=== PATIENT | male | born 1990 | race Caucasian/White ===

== ENCOUNTER 2021-05-28 13:23 | Inpatient (IN) | payer MEDICAID, SELFPAY ==
[2021-05-28] VITALS (7 sets, daily range): BP systolic 141–154; BP diastolic 87–108; PULSE 68–78; RESP 16–18; TEMP 36.7–38.3; O2SAT 97–100; BMI 28.5; BMI 27.8
--- NOTE | 2021-05-28 16:42 | EKG12_ITS ---
Test Reason : CP Blood Pressure : / mmHG Vent. Rate : 080 BPM Atrial Rate : 080 BPM P-R Int : 154 ms QRS Dur : 098 ms QT Int : 384 ms P-R-T Axes : 033 057 015 degrees QTc Int : 442 ms Normal sinus rhythm Normal ECG When compared with ECG of 28-MAY-2021 16:52, Nonspecific T wave abnormality now evident in Inferior leads Confirmed by MEAGHAN CHINO, DANI ([id number]), website/blog editor JOANNE VILLAGRAN ([id number]) on 06/07/2021 12:31:55 P M Referred By: DANAY Confirmed By:AUDRA HARDING MD
--- NOTE | 2021-05-28 16:48 | EX.ED.DYSGE1 ---
HPI History of Present Illness Chief Complaint: Substance Abuse Informant: patient Narrative Narrative: 30-year-old male presents the emergency department requesting detox from heroin and alcohol. Patient states that he was clean for a couple years was taking Subutex. Couple months ago end of a relationship occurred and he began to use heroin again. The patient injects. Although he states for the past couple days he has been snorting. Patient states that he also abuses alcohol. He states he needs to get clean. He denies any legal issues currently [facility] Medical History (Updated 05/28/21 @ 17:[address] Lazarus Somers DO) Asthma Hepatitis C Opiate abuse, continuous Home Medications albuterol sulfate 1 - 2 puff INHALATION Q6H PRN 05/28/21 [History Last Taken Unknown] buprenorphine HCl 8 mg SUBLINGUAL BID 05/28/21 [History Last Taken Unknown] fluticasone propion-salmeterol 1 ea INHALATION BID 05/28/21 [History Last Taken Unknown] Allergy/AdvReac Type Severity Reaction Status Date / Time No Known Allergies Allergy Verified 05/28/21 16:55 Surgical History History of appendectomy History of spinal surgery Social History (Updated 05/28/21 @ 16:[address] Lazarus Somers DO) current gender identity: male Smoking Status: Current every day smoker tobacco type: cigarettes alcohol intake: current alcohol intake frequency: 3 or more drinks per day substance use type: crack/cocaine and heroin ROS ROS ED Constitutional Constitutional ED: Denies chills or weight loss Eyes Eyes: Denies change in vision or diplopia ENT ENT ED: Denies ear pain, rhinorrhea or sore throat Cardiovascular Cardiovascular: Denies chest pain, orthopnea, palpitations or racing heartbeat Respiratory/Chest Respiratory/Chest: Denies cough, dyspnea or orthopnea Gastrointestinal Gastrointestinal: Denies abdominal pain, diarrhea, nausea or vomiting Genitourinary Genitourinary ED: Denies dysuria, hematuria or urinary frequency Musculoskeletal Musculoskeletal: Denies arthralgias or myalgias Integumentary Denies abscess or rash Neurologic Neurologic: Denies headache(s) or weakness Psychiatric Psychiatric: Denies anxiety, depression, suicidal ideation or suicidal thoughts Endocrine Endocrinology: Denies polydipsia, polyphagia or polyuria Allergic/Immunologic Allergic/Immunologic ED: Denies mouth swelling, tongue swelling or urticaria EXAM Physical Exam Const Vital Signs: 05/28/21 13:24 05/28/21 16:57 05/28/21 17:02 Temperature 98.1 F Temperature Source Temporal Pulse Rate 74 68 Respiratory Rate 16 18 Respiratory Effort Normal Respiratory Pattern Normal Blood Pressure 150/108 H 154/102 H Blood Pressure Mean 122 119 Pulse Ox 98 100 Oxygen Delivery Method Room Air Room Air Positive well nourished and well developed General Appearance ED: well developed HEENT Reports normocephalic, head/scalp atraumatic and moist mucous membranes Eyes PERRL and EOMs intact bilaterally Neck no lymphadenopathy, supple and no JVD Resp normal respiratory effort and clear to auscultation bilaterally Cardio regular rate, regular rhythm and no murmurs GI normal to inspection, nondistended, normoactive bowel sounds and non-tender Palpation: soft Back/Spine no CVA tenderness and normal ROM Extremity normal to inspection General Extremety ED: Negative for edema General Extremity: Negative for edema Neuro oriented x3 and CN's II-XII intact bilaterally Sensorium / Orientation: alert Motor Exam: strength 5/5 throughout Psych mental status grossly normal Mood & Affect: Negative for depressed or tearful Skin no rashes or lesions noted and no wounds MDM MDM Lab Data Attestation: I reviewed the patient's lab results. Labs: Laboratory Results - last 24 hr 05/28/21 16:19 Ur Drug Screen Comment EKG Initial EKG: Attestation: I personally reviewed and interpreted this EKG as follows: Comments: Normal sinus rhythm with a ventricular rate of 63 bpm. Discharge Plan Dx/Rx/DC Orders Clinical Impression: Opiate abuse, continuous, Alcohol abuse Disposition Disposition: Acute Care Hospital [facility]
[2021-05-28 17:15] LABS: Amphetamine Urine VISTA NEGATIVE (<1000 ng/mL); Barbiturate Urine VISTA NEGATIVE (< 200 ng/mL); Benzodiazepine Urine VISTA NEGATIVE (< 200 ng/mL); Cocaine Urine VISTA POSITIVE (< 300 ng/mL); Ecstacy Urine VISTA NEGATIVE (< 500 ng/mL); Methadone Urine VISTA NEGATIVE (< 300 ng/mL); PCP Urine VISTA NEGATIVE (< 25 ng/mL); THC Urine VISTA NEGATIVE (< 50 ng/mL); Vista UDS pH Range 6
[2021-05-28 17:27] LABS: Absolute Neutrophil Count 4.3 X10^3/uL (2.0-7.7); Basophil# 0.02 X10^3/uL; Basophil% 0.3 % (0-1); Eosinophil# 0.05 X10^3/uL; Eosinophils% 0.9 % (0-5); Hematocrit 45.2 % (40-54); Hemoglobin 14.9 g/dL (13.0-16.5); Lymphocyte % 18.8 % (19-41); Mean Corpuscular Hgb 29.6 pg (27.0-32.0); Mean Corpuscular Volume 89.9 fL (80-94); Mean Platelet Vol. 9.5 fl (6.2-12.0); Monocyte# 0.36 X10^3/uL; Monocyte% 6.2 % (0-10); NRBC Flagged by Analyzer 0 % (0-5); Neutrophil # 4.31 X10^3/uL (2.7-7.7); Neutrophil % 73.6 % (47-70); Platelet Count 176 K/mm3 (150-450); RBC Distribution Width CV 12.4 % (11.6-14.6); RBC Distribution Width SD 40.7 fl (35.1-43.9); Red Blood Count 5.03 M/mm3 (4.6-6.2); White Blood Count 5.9 K/mm3 (4.4-11.0)
[2021-05-28 17:36] LABS: International Normalized Ratio 1.1; Prothrombin Time (Protime)PT. 13.3 SECONDS (11.7-14.9)
[2021-05-28 17:42] LABS: ALB/GLOB Ratio 0.9 RATIO (0.9-2.4); AST(SGOT) 16 U/L (15-37); Alanine Aminotransfer ALT/SGPT 23 U/L (16-61); Albumin, Serum 3.5 g/dL (3.2-5.0); Alkaline Phosphatase 85 U/L (45-117); Anion Gap 5 (5-15); BUN 12 mg/dL (7-18); Calcium,Total 9.1 mg/dL (8.5-10.1); Chloride 104 mmol/L (98-107); Creatinine, Serum 0.86 mg/dL (0.70-1.30); EST Glomerular Filtration Rate 109 mL/min (>60); Est Glom Filt Rate - Afr Amer 132 mL/min (>60); Estimated Creatinine Clearance 143.37 ml/min; Globulin 3.9 g/dL (2.2-4.2); Glucose 135 mg/dL (74-106); Potassium 3.4 mmol/L (3.5-5.1); Protein, Total 7.4 g/dL (6.4-8.2); Sodium Level 141 mmol/L (136-145)
[2021-05-28 17:50] LABS: Alcohol, Blood (Medical)-Serum < 3.0 mg/dL
--- NOTE | 2021-05-28 18:16 | HP.PCM.HOS_ITS ---
HPI - General General Date of Admission: 05/28/21 Date of Service: 05/28/21 Chief Complaint: Acute alcohol detox/acute opiate detox HPI Narrative KACIE JACKSON, is a 30 M who presented to the emergency department at [facility] on 05/28/2021 requesting opiate and alcohol detox. The patient states that he has been using both substances for approximately 10 years now and has had periodic sobriety. He most recently underwent detox approximately 2 years ago and did have at least a year of sobriety at that time. He states he started using again secondary to some emotional issues that have occurred in his life but did not want to delve further into these. He is currently using about 1 to 1.5 g of fentanyl a day but has used heroin as well. He uses IV and snorts. He is also drinking approximately 3 tall boys daily on a regular basis. He has never gone through alcohol detox or had any issues with alcohol withdrawal in the past. He denies any current wounds associated with IV drug use. 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 He also admits to smoking tobacco regularly and intermittent cocaine use. He currently denies any significant withdrawal symptoms but is complaining of some clouded thinking and mild internal tremor but denies any other symptoms at this time. Other than elevated blood pressure, his vital signs are stable. His CBC is unremarkable. His coags are within normal limits. His BMP shows mild hypokalemia with a potassium of 3.4 but is otherwise within normal limits. His liver functions are normal. His tox screen is positive only for cocaine. His serum alcohol level is less than 3.0. [facility] Medical History (Updated 05/28/21 @ 18:[address] Jo Ruelas, DO) Asthma Hepatitis C Opiate abuse, continuous Home Medications albuterol sulfate 1 - 2 puff INHALATION Q6H PRN 05/28/21 [History Last Taken Unknown] buprenorphine HCl 8 mg SUBLINGUAL BID 05/28/21 [History Last Taken Unknown] fluticasone propion-salmeterol 1 ea INHALATION BID 05/28/21 [History Last Taken Unknown] Allergy/AdvReac Type Severity Reaction Status Date / Time No Known Allergies Allergy Verified 05/28/21 16:55 Surgical History History of appendectomy History of spinal surgery Social History (Updated 05/28/21 @ 16:[address] Lazarus Somers, DO) current gender identity: male Smoking Status: Current every day smoker tobacco type: cigarettes alcohol intake: current alcohol intake frequency: 3 or more drinks per day substance use type: crack/cocaine and heroin ROS Constitutional Constitutional: Denies anorexia, change in weight, chills, fatigue, fever(s), malaise, night sweats, weakness or other Eyes Eyes: Denies blurry vision, change in eye color, change in vision, discharge from eye(s), double vision, erythema, eye pain, loss of vision or other ENT HEENT: Denies abnormal hearing, dysphagia, ear pain, epistaxis, headache(s), hearing loss, nasal congestion, nasal discharge, post nasal drip, sinus pressure, sore throat or other Cardiovascular Cardiovascular: Denies chest pain, claudication, dyspnea on exertion, edema, lightheadedness, orthopnea, palpitations, paroxysmal nocturnal dyspnea, rapid heart rate, syncope or other Respiratory/Chest Respiratory/Chest: Denies cough, dyspnea, excessive phlegm production, hemoptysis, productive cough, shortness of breath at rest, shortness of breath with exertion, wheezing or other Gastrointestinal Gastrointestinal: Denies abdominal pain, coffee ground emesis, constipation, diarrhea, dyspepsia, hematemesis, hematochezia, loose stools, melena, nausea, vomiting or other Genitourinary Genitourinary: Denies burning urination, difficulty urinating, dysuria, hematuria, nocturia, urinary frequency, urinary hesitancy, urinary incontinence, urinary urgency or other Musculoskeletal Musculoskeletal: Denies arthralgias, back pain, joint pain, joint stiffness, joint swelling, myalgias, neck pain or other Neurologic Neurologic: Reports tremor(s) and other Details: Clouded thinking ; Denies abnormal gait, abnormal speech, confusion, disequilibrium, dizziness, focal weakness, headache(s), numbness, paresthesias, seizure-like activity, seizures, syncope or tingling Psychiatric Psychiatric: Reports anxiety and depression Endocrine Endocrinology: Denies change in body appearance, cold intolerance, excessive sweating, heat intolerance, polydipsia, polyuria or other Hematologic/Lymphatic Hematologic/Lymphatic: Denies anemia, easy bleeding, easy bruising, lymphadenopathy or other Allergic/Immunologic Allergic/Immunologic: Denies rhinitis, hives, eczemia, asthma or other Vital Signs Vital Signs Vital Signs: 05/28/21 13:24 05/28/21 16:57 05/28/21 17:02 Temperature 98.1 F Temperature Source Temporal Pulse Rate 74 68 Respiratory Rate 16 18 Respiratory Effort Normal Respiratory Pattern Normal Blood Pressure 150/108 H 154/102 H Blood Pressure Mean 122 119 Pulse Ox 98 100 Oxygen Delivery Method Room Air Room Air Weight Weight: 100.879 kg Body Mass Index (BMI) 28.5 Physical Exam Const alert, oriented x3, no apparent distress and average body habitus Constitutional Narrative: Young white male sitting up in bed, appears comfortable, nontoxic, very pleasant General Appearance: cooperative HEENT normocephalic, head/scalp atraumatic, hearing grossly normal bilaterally and moist oral mucous membranes HEENT Narrative: Mallampati 2, no thrush Eyes PERRL, EOMs intact bilaterally and conjunctivae normal Eyes Narrative: No scleral icterus Neck no lymphadenopathy, supple, no JVD and no carotid bruits Neck Narrative: Trachea midline, no thyroid enlargement Resp normal respiratory effort, no retractions, no use of accessory muscles and clear to auscultation bilaterally Auscultation: Negative for crackles, rales, rhonchi or wheezes Cardio regular rate, regular rhythm, S1 normal heart sound, S2 normal heart sound, no murmurs, no rub, no gallops, no clicks and no JVD GI normal to inspection, nondistended, normoactive bowel sounds, soft to palpation, non-tender and non-distended; Negative for hepatosplenomegaly Extremity normal to inspection, full ROM and no clubbing, cyanosis or edema Peripheral Pulses: Yes pulses 2+ throughout Skin no rashes or lesions noted, no wounds, skin turgor normal, no jaundice, no petechiae and no mottling Neuro oriented x3, CN's II-XII intact bilaterally, moves all extremities and no focal motor deficits Sensorium / Orientation: awake and alert Speech: speech normal Motor Exam: strength 5/5 throughout Psych affect normal Results Lab / Micro Data Attestation: I reviewed the patient's lab results. Result Diagrams: 05/28/21 17:20 05/28/21 17:20 Labs: Laboratory Results - last 24 hr 05/28/21 16:19: Urine Opiates Screen NEGATIVE, Urine Methadone Screen NEGATIVE, Ur Barbiturates Screen NEGATIVE, Ur Phencyclidine Scrn NEGATIVE, Ur Amphetamines Screen NEGATIVE, U Methamphetamin-MDMA NEGATIVE, U Benzodiazepines Scrn NEGATIVE, Urine Cocaine Screen POSITIVE H, U Cannabinoids Screen NEGATIVE, Ur Drug Screen Comment 05/28/21 17:20: WBC 5.9, RBC 5.03, Hgb 14.9, Hct 45.2, MCV 89.9, MCH 29.6, MCHC 33.0, RDW Std Deviation 40.7, RDW Coeff of Fredo 12.4, Plt Count 176, MPV 9.5, Immature Gran % (Auto) 0.200, Neut % (Auto) 73.6 H, Lymph % (Auto) 18.8 L, [place] % (Auto) 6.2, Eos % (Auto) 0.9, Baso % (Auto) 0.3, Absolute Neuts (auto) 4.3, Absolute Lymphs (auto) 1.10, Nucleated RBC % 0 05/28/21 17:20: PT 13.3, INR 1.1 05/28/21 17:20: Sodium 141, Potassium 3.4 L, Chloride 104, Carbon Dioxide 32.0, Anion Gap 5, BUN 12, Creatinine 0.86, Estim Creat Clear Calc 143.37, Est GFR (MDRD) Af Amer 132, Est GFR (MDRD) Non-Af 109, BUN/Creatinine Ratio 14.0, Glucose 135 H, Calcium 9.1, Total Bilirubin 0.30, AST 16, ALT 23, Alkaline Phosphatase 85, Total Protein 7.4, Albumin 3.5, Globulin 3.9, Albumin/Globulin Ratio 0.9 05/28/21 17:20: Ethyl Alcohol < 3.0 Assessment & Plan Assessment/Plan (1) Alcohol withdrawal: (2) Opiate withdrawal: (3) Hypokalemia: (4) Elevated blood pressure reading: (5) Alcohol abuse: (6) Opiate abuse, continuous: (7) Tobacco abuse: PLAN: Acute opiate withdrawal -We will start buprenorphine taper tomorrow -Supportive medications -180 consultation -States patient uses IV will check for HIV Acute alcohol withdrawal -Phenobarbital taper to start tonight -Thiamine and folate -Supportive medications -180 consultation Hypokalemia -40 mEq of p.o. potassium -Mild at 3.4 -No need to repeat labs Elevated blood pressure reading -Suspect this is related to the substance abuse -Has cocaine in his system -We will continue to monitor and if blood pressure readings remain elevated will have patient follow-up and initiate antihypertensive as an outpatient Asthma -Continue as needed inhalers Tobacco abuse -Nicotine gum -Recommend cessation DVT prophylaxis -Low risk -Early ambulation protocol CODE STATUS -Full code
--- NOTE | 2021-05-28 18:46 | PCS.PANDOC ---
PANDEMIC DOCUMENTATION INITIATED: Date: 03/21/2021 Time: 190
[2021-05-28] MEDS: Dicyclomine 10 MG Capsule 20 MG PO (19:42)
[2021-05-28] MEDS: Potassium Chloride Oral Tablet 20 MEQ 40 MEQ PO (19:42)
[2021-05-28] MEDS: Phenobarbital 32.4 MG Tablet PO ×2 (19:42→23:00)
[2021-05-28] MEDS: Methocarbamol 750 MG Tablet 1500 MG PO (19:43)
[2021-05-28] MEDS: Albuterol 2.5 MG/3 ML VIAL.NEB. INHALATION (20:42)
[2021-05-28] MEDS: Budesonide Respules 0.5 MG/2 ML AMPUL.NEB. INHALATION (20:42)
[2021-05-28] MEDS: traZODone 100 MG Tablet PO (23:01)
[2021-05-28] MEDS: hydrOXYzine PAM 25 MG Capsule 50 MG PO (23:01)
[2021-05-29] VITALS (8 sets, daily range): BP systolic 117–143; BP diastolic 69–104; PULSE 69–87; RESP 12–16; TEMP 36.6–36.9; O2SAT 97–99
[2021-05-29] MEDS: Gabapentin 300 MG Capsule PO ×2 (00:43→18:38)
--- NOTE | 2021-05-29 02:05 | NURSING ---
Not awakened. Pt finally fell asleep.
[2021-05-29] MEDS: Phenobarbital 32.4 MG Tablet PO ×4 (02:50→22:35)
[2021-05-29] MEDS: Folic Acid 1 MG Tablet PO (10:06)
[2021-05-29] MEDS: Thiamine Hydrochloride 100 MG Tablet PO (10:06)
[2021-05-29] MEDS: Methocarbamol 750 MG Tablet 1500 MG PO ×2 (10:06→18:38)
[2021-05-29] MEDS: Buprenorphine HCl 2 MG TAB.SUBL SL ×2 (10:47→18:38)
--- NOTE | 2021-05-29 11:12 | PN.HOSP_ITS ---
Subjective Subjective Patient reports he is feeling fine. He did refuse his morning phenobarbital. He is to start his Suboxone taper this morning. No overnight issues or complaints this morning. Objective Data Objective Data Vital Signs: Vital Signs Temp Pulse Resp BP Pulse Ox 97.9 F 73 16 143/104 H 99 05/29/21 10:20 05/29/21 10:20 05/29/21 10:20 05/29/21 10:20 05/29/21 10:20 Oxygen Delivery Method Room Air Weight: 98.43 kg Body Mass Index (BMI) 27.8 Lab / Micro Data Result Diagrams: 05/28/21 17:20 05/28/21 17:20 Labs: Laboratory Results - last 24 hr 05/28/21 16:19: Urine Opiates Screen NEGATIVE, Urine Methadone Screen NEGATIVE, Ur Barbiturates Screen NEGATIVE, Ur Phencyclidine Scrn NEGATIVE, Ur Amphetamines Screen NEGATIVE, U Methamphetamin-MDMA NEGATIVE, U Benzodiazepines Scrn NEGATIVE, Urine Cocaine Screen POSITIVE H, U Cannabinoids Screen NEGATIVE, Ur Drug Screen Comment 05/28/21 17:20: WBC 5.9, RBC 5.03, Hgb 14.9, Hct 45.2, MCV 89.9, MCH 29.6, MCHC 33.0, RDW Std Deviation 40.7, RDW Coeff of Fredo 12.4, Plt Count 176, MPV 9.5, Immature Gran % (Auto) 0.200, Neut % (Auto) 73.6 H, Lymph % (Auto) 18.8 L, [place] % (Auto) 6.2, Eos % (Auto) 0.9, Baso % (Auto) 0.3, Absolute Neuts (auto) 4.3, Absolute Lymphs (auto) 1.10, Nucleated RBC % 0 05/28/21 17:20: PT 13.3, INR 1.1 05/28/21 17:20: Sodium 141, Potassium 3.4 L, Chloride 104, Carbon Dioxide 32.0, Anion Gap 5, BUN 12, Creatinine 0.86, Estim Creat Clear Calc 143.37, Est GFR (MDRD) Af Amer 132, Est GFR (MDRD) Non-Af 109, BUN/Creatinine Ratio 14.0, Glucose 135 H, Calcium 9.1, Total Bilirubin 0.30, AST 16, ALT 23, Alkaline Phosphatase 85, Total Protein 7.4, Albumin 3.5, Globulin 3.9, Albumin/Globulin Ratio 0.9 05/28/21 17:20: Ethyl Alcohol < 3.0 Physical Exam Const alert, oriented x3, no apparent distress and average body habitus Constitutional Narrative: Young white male lying in bed sleeping but awakens easily for exam, appears comfortable, nontoxic General Appearance: cooperative Exam Limitations: no limitations Nutritional Appearance: overweight HEENT normocephalic, head/scalp atraumatic, hearing grossly normal bilaterally and moist oral mucous membranes Head and Scalp: normocephalic Eyes Eyes Narrative: No scleral icterus Resp normal respiratory effort, no retractions, no use of accessory muscles and clear to auscultation bilaterally Auscultation: Negative for crackles, rales, rhonchi or wheezes Cardio regular rate, regular rhythm, S1 normal heart sound, S2 normal heart sound, no murmurs, no rub, no gallops, no clicks and no JVD GI normal to inspection, nondistended, normoactive bowel sounds, soft to palpation, non-tender and non-distended; Negative for hepatosplenomegaly Extremity no clubbing, cyanosis or edema Peripheral Pulses: Yes pulses 2+ throughout Neuro oriented x3 and moves all extremities Sensorium / Orientation: awake and alert Speech: speech normal Assessment & Plan Assessment/Plan (1) Alcohol withdrawal: (2) Opiate withdrawal: (3) Hypokalemia: (4) Elevated blood pressure reading: (5) Alcohol abuse: (6) Opiate abuse, continuous: (7) Tobacco abuse: PLAN: Acute opiate withdrawal -Buprenorphine taper with stop date that 10:30 AM on 06/01/2021 -Supportive medications -180 consultation--> suspect they will see patient tomorrow -HIV status is pending Acute alcohol withdrawal -Phenobarbital taper -Thiamine and folate -Supportive medications -180 consultation Hypokalemia - resolved Elevated blood pressure reading -Suspect this is related to the substance abuse -Improved but remains elevated -Had cocaine in his system on admission and this may be contributing to his elevated readings -We will continue to monitor and if blood pressure readings remain elevated will have patient follow-up and initiate antihypertensive as an outpatient Asthma -Continue as needed inhalers Tobacco abuse -Nicotine gum -Recommend cessation DVT prophylaxis -Low risk -Early ambulation protocol CODE STATUS -Full code Charges/Coding Visit Charges Inpatient E&M: 39707 Subs Hosp L2
[2021-05-30 02:46] VITALS: BP 135/87; PULSE 70; RESP 16; TEMP 36.8; O2SAT 99
[2021-05-30] MEDS: cloNIDine HCl 0.1 MG Tablet PO ×2 (03:01→11:43)
[2021-05-30] MEDS: Methocarbamol 750 MG Tablet 1500 MG PO ×3 (03:01→18:41)
[2021-05-30] MEDS: Gabapentin 300 MG Capsule PO ×3 (03:01→22:51)
[2021-05-30] MEDS: Phenobarbital 32.4 MG Tablet PO ×5 (03:01→22:51)
[2021-05-30 07:59] LABS: HIV - WCH Non-Reactive (Nonreactive)
--- NOTE | 2021-05-30 08:14 | PCM.PN.HOSP ---
Subjective Subjective Follow-up on acute alcohol/opiate withdrawal: Patient was seen and examined. He complained of feeling restless, having tremors, feels nauseous. Objective Data Objective Data Vital Signs: Vital Signs Temp Pulse Resp BP Pulse Ox 98.3 F 70 16 135/87 H 99 05/30/21 02:46 05/30/21 02:46 05/30/21 02:46 05/30/21 02:46 05/30/21 02:46 Oxygen Delivery Method Room Air Weight: 98.43 kg Body Mass Index (BMI) 27.8 Intake & Output: Intake and Output for Last 24 Hours 05/28/21 05/29/21 05/30/21 23:59 23:59 23:59 Intake Total 240 / 240 Balance 240 / 240 Lab / Micro Data Result Diagrams: 05/28/21 17:20 05/28/21 17:20 Labs: Laboratory Results - last 24 hr 05/28/21 17:20: HIV 1&2 Antibody Non-Reactive Physical Exam Narrative Physical exam: General: Alert, Oriented x3, Cooperative, in mild discomfort HEENT: Atraumatic Oral: Moist Mucosa Neck: Supple Lungs: Clear to auscultation Cardiovascular: HS I+II, regular, no murmurs Abdomen: Bowel Sounds Present, Soft, Non Tender Extremities: No edema Const alert, oriented x3, no apparent distress and average body habitus Constitutional Narrative: Young white male lying in bed sleeping but awakens easily for exam, appears comfortable, nontoxic General Appearance: cooperative Exam Limitations: no limitations Nutritional Appearance: overweight HEENT normocephalic, head/scalp atraumatic, hearing grossly normal bilaterally and moist oral mucous membranes Eyes PERRL, EOMs intact bilaterally and conjunctivae normal Eyes Narrative: No scleral icterus Neck no lymphadenopathy, supple, no JVD and no carotid bruits Neck Narrative: Trachea midline, no thyroid enlargement Resp normal respiratory effort, no retractions, no use of accessory muscles and clear to auscultation bilaterally Auscultation: Negative for crackles, rales, rhonchi or wheezes Cardio regular rate, regular rhythm, S1 normal heart sound, S2 normal heart sound, no murmurs, no rub, no gallops, no clicks and no JVD GI normal to inspection, nondistended, normoactive bowel sounds, soft to palpation, non-tender and non-distended; Negative for hepatosplenomegaly Extremity no clubbing, cyanosis or edema Skin no rashes or lesions noted, no wounds, skin turgor normal, no jaundice, no petechiae and no mottling Neuro oriented x3 and moves all extremities Sensorium / Orientation: awake and alert Speech: speech normal Motor Exam: strength 5/5 throughout Psych affect normal Assessment & Plan Assessment/Plan (1) Alcohol withdrawal: QUALIFIERS: Complication of substance-induced condition: uncomplicated Qualified Code(s): F10.230 - Alcohol dependence with withdrawal, uncomplicated (2) Opiate withdrawal: (3) Hypokalemia: (4) Elevated blood pressure reading: (5) Alcohol abuse: (6) Opiate abuse, continuous: (7) Tobacco abuse: PLAN: 1. Acute opioid and alcohol withdrawal, patient seen and CIWA scores are pretty high Refused Subutex, on phenobarbital taper We will continue with both withdrawal protocols 2. Hypokalemia, resolved, recheck labs in am 3. Elevated blood pressure reading, resolved 4. Nicotine dependence, on replacement, advised to quit Charges/Coding Visit Charges Inpatient E&M: 61320 Subs Hosp L2
[2021-05-30 10:20] VITALS: BP 128/77; PULSE 81; RESP 16; TEMP 36.4; O2SAT 97
[2021-05-30] MEDS: Dicyclomine 10 MG Capsule 20 MG PO ×2 (10:28→18:41)
[2021-05-30] MEDS: Buprenorphine HCl 2 MG TAB.SUBL SL ×2 (10:28→18:41)
[2021-05-30] MEDS: Ondansetron 8 MG Tablet PO ×2 (10:28→18:41)
[2021-05-30] MEDS: Folic Acid 1 MG Tablet PO (10:28)
[2021-05-30] MEDS: hydrOXYzine PAM 25 MG Capsule 50 MG PO ×2 (10:29→15:00)
[2021-05-30] MEDS: Thiamine Hydrochloride 100 MG Tablet PO (10:29)
[2021-05-30 15:04] VITALS: BP 113/66; PULSE 73; RESP 18; TEMP 36.6; O2SAT 99
--- NOTE | 2021-05-30 15:18 | NURSING ---
reviewed charting by Sterling Rios LPN
--- NOTE | 2021-05-30 15:54 | ADDICTION ---
TW met with Pt to complete ASAM, AUDIT, DUDIT, MSE, MARIO, and prep for d/c. Pt was pleasant, agreeable, and answered all questions asked. Pt is requesting residential treatment and is an appropriate candidate. Pt reported using 1.5 grams of fentanyl IV daily. Pt also reports being homeless. TW stated she would put in the appropriate referrals for residential treatment for pt and report back the next day with updates. D/c plan will be completed at that time.
[2021-05-30 18:46] VITALS: BP 106/65; PULSE 70; RESP 18; TEMP 37; O2SAT 96
[2021-05-30 22:45] VITALS: BP 112/77; PULSE 67; RESP 16; TEMP 36.4; O2SAT 97
[2021-05-30] MEDS: traZODone 100 MG Tablet PO (22:51)
[2021-05-31] MEDS: Buprenorphine HCl 2 MG TAB.SUBL SL ×3 (02:04→22:10)
[2021-05-31 02:51] VITALS: BP 116/74; PULSE 68; RESP 16; TEMP 37.1; O2SAT 96
[2021-05-31 05:51] LABS: ALB/GLOB Ratio 0.8 RATIO (0.9-2.4); AST(SGOT) 14 U/L (15-37); Alanine Aminotransfer ALT/SGPT 21 U/L (16-61); Albumin, Serum 3.3 g/dL (3.2-5.0); Alkaline Phosphatase 80 U/L (45-117); Anion Gap 8 (5-15); BUN 16 mg/dL (7-18); BUN/Creat Ratio 18.4 RATIO (10-20); Calcium,Total 9.3 mg/dL (8.5-10.1); Chloride 106 mmol/L (98-107); Creatinine, Serum 0.87 mg/dL (0.70-1.30); EST Glomerular Filtration Rate 108 mL/min (>60); Est Glom Filt Rate - Afr Amer 130 mL/min (>60); Estimated Creatinine Clearance 141.72 ml/min; Glucose 100 mg/dL (74-106); Potassium 3.7 mmol/L (3.5-5.1); Protein, Total 7.3 g/dL (6.4-8.2); Sodium Level 141 mmol/L (136-145)
[2021-05-31 08:18] VITALS: BP 109/76; PULSE 73; RESP 16; TEMP 36.6; O2SAT 98
[2021-05-31] MEDS: Folic Acid 1 MG Tablet PO (08:23)
[2021-05-31] MEDS: Thiamine Hydrochloride 100 MG Tablet PO (08:23)
[2021-05-31] MEDS: Phenobarbital 32.4 MG Tablet PO ×3 (08:23→20:53)
[2021-05-31] MEDS: Ondansetron 8 MG Tablet PO ×2 (08:30→20:53)
[2021-05-31] MEDS: Methocarbamol 750 MG Tablet 1500 MG PO ×2 (08:30→14:53)
[2021-05-31] MEDS: Dicyclomine 10 MG Capsule 20 MG PO ×3 (08:30→20:53)
[2021-05-31] MEDS: Gabapentin 300 MG Capsule PO (08:30)
[2021-05-31] MEDS: hydrOXYzine PAM 25 MG Capsule 50 MG PO (10:45)
--- NOTE | 2021-05-31 11:00 | CASEMGMT ---
Social Work Note Pt is RAMP pt. SW reviewed chart. Pt to follow up with [facility]. Pt also reported to [facility] that he is homeless. Pt to admit to [facility] residential and can follow up with [facility] housing program. Neris Ponce FUEL AGENT, ELECTROLYSIS OPERATOR
--- NOTE | 2021-05-31 11:40 | PCM.PN.HOSP ---
Subjective Subjective Follow-up on acute alcohol/opiate withdrawal: Patient was seen and examined. Complains of having hot and cold flashes, feels tremulous, feels nauseous, he also has some loose bowel movements, 1-2 in the last 24 hours. Objective Data Objective Data Vital Signs: Vital Signs Temp Pulse Resp BP Pulse Ox 97.9 F 73 16 109/76 98 05/31/21 08:18 05/31/21 08:18 05/31/21 08:18 05/31/21 08:18 05/31/21 08:18 Oxygen Delivery Method Room Air Weight: 98.43 kg Body Mass Index (BMI) 27.8 Intake & Output: Intake and Output for Last 24 Hours 05/29/21 05/30/21 05/31/21 23:59 23:59 23:59 Intake Total 240 / 240 240 / 240 Balance 240 / 240 240 / 240 Lab / Micro Data Result Diagrams: 05/28/21 17:20 05/31/21 04:50 Labs: Laboratory Results - last 24 hr 05/31/21 04:50: Sodium 141, Potassium 3.7, Chloride 106, Carbon Dioxide 27.0, Anion Gap 8, BUN 16, Creatinine 0.87, Estim Creat Clear Calc 141.72, Est GFR (MDRD) Af Amer 130, Est GFR (MDRD) Non-Af 108, BUN/Creatinine Ratio 18.4, Glucose 100, Calcium 9.3, Total Bilirubin 0.40, AST 14 L, ALT 21, Alkaline Phosphatase 80, Total Protein 7.3, Albumin 3.3, Globulin 4.0, Albumin/Globulin Ratio 0.8 L Physical Exam Narrative Physical exam: General: Alert, Oriented x3, Cooperative, appears in discomfort HEENT: Atraumatic Oral: Moist Mucosa Neck: Supple Lungs: Clear to auscultation Cardiovascular: HS I+II, regular, no murmurs Abdomen: Bowel Sounds Present, Soft, Non Tender Extremities: No edema Assessment & Plan Assessment/Plan (1) Alcohol withdrawal: QUALIFIERS: Complication of substance-induced condition: uncomplicated Qualified Code(s): F10.230 - Alcohol dependence with withdrawal, uncomplicated (2) Opiate withdrawal: (3) Hypokalemia: (4) Elevated blood pressure reading: (5) Alcohol abuse: (6) Opiate abuse, continuous: (7) Tobacco abuse: PLAN: 1. Acute opioid and alcohol withdrawal, last seen as CINA score is 5, CIWA is 16 Been taking his Subutex now, as well as phenobarbital taper Continue with both withdrawal protocols 2. Hypokalemia, resolved 3. Elevated blood pressure reading, resolved 4. Nicotine dependence, on replacement, advised to quit Charges/Coding Visit Charges Inpatient E&M: 56880 Subs Hosp L2
[2021-05-31 14:47] VITALS: BP 126/90; PULSE 71; RESP 16; TEMP 36.8; O2SAT 100
[2021-05-31] MEDS: cloNIDine HCl 0.1 MG Tablet PO (14:53)
[2021-05-31 20:49] VITALS: BP 113/73; PULSE 72; RESP 16; TEMP 36.4; O2SAT 96
[2021-05-31] MEDS: traZODone 100 MG Tablet PO (20:53)
[2021-06-01] VITALS (8 sets, daily range): BP systolic 92–142; BP diastolic 60–115; PULSE 67–121; RESP 16–18; TEMP 36.3–37.1; O2SAT 95–99
[2021-06-01] MEDS: Phenobarbital 32.4 MG Tablet PO ×4 (02:55→21:06)
[2021-06-01] MEDS: Methocarbamol 750 MG Tablet 1500 MG PO ×2 (08:22→15:20)
[2021-06-01] MEDS: Thiamine Hydrochloride 100 MG Tablet PO (08:22)
[2021-06-01] MEDS: cloNIDine HCl 0.1 MG Tablet PO (08:22)
[2021-06-01] MEDS: Ondansetron 8 MG Tablet PO ×2 (08:22→20:03)
[2021-06-01] MEDS: Gabapentin 300 MG Capsule PO ×2 (08:22→21:06)
[2021-06-01] MEDS: Folic Acid 1 MG Tablet PO (08:22)
[2021-06-01] MEDS: Dicyclomine 10 MG Capsule 20 MG PO ×2 (08:22→15:20)
--- NOTE | 2021-06-01 09:21 | CASEMGMT ---
Addendum entered by Neris Ponce 06/01/21 11:14: Ramin, Addiction Therapist, updated this worker that transportation cannot be arranged today now but transportation is set for 9:00am tomorrow. SW updated physician and RN. Original Note: Social Work Note Pt was supposed to be picked up at 10:00am this morning to transport to [facility]. 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 ELROY placed a call to Rika Addiction Therapist, and asked if transportation could be later this afternoon today instead of 10:00am. Rika states transportation can be at 2:00pm today. ELROY updated physician. Neris Ponce GUIDANCE SECRETARY, [employer]
--- NOTE | 2021-06-01 11:12 | PN.HOSP_ITS ---
Subjective Subjective Follow-up on acute alcohol/opiate withdrawal: Patient was seen and examined. He complains of feeling tremulous and dizzy. He completed his phenobarbital taper the night before. His orthostatic vitals were positive. Objective Data Objective Data Vital Signs: Vital Signs Temp Pulse Resp BP Pulse Ox 97.7 F L 121 H 18 112/75 97 06/01/21 08:16 06/01/21 09:06 06/01/21 08:16 06/01/21 09:06 06/01/21 08:16 Oxygen Delivery Method Room Air Weight: 98.43 kg Body Mass Index (BMI) 27.8 Intake & Output: Intake and Output for Last 24 Hours 05/30/21 05/31/21 06/01/21 23:59 23:59 23:59 Intake Total 240 / 240 Balance 240 / 240 Lab / Micro Data Result Diagrams: 05/28/21 17:20 05/31/21 04:50 Physical Exam Narrative Physical exam: General: Alert, Oriented x3, Cooperative, comfortable HEENT: Atraumatic Oral: Moist Mucosa Neck: Supple Lungs: Clear to auscultation Cardiovascular: HS I+II, regular, no murmurs Abdomen: Bowel Sounds Present, Soft, Non Tender Extremities: No edema Assessment & Plan Assessment/Plan (1) Alcohol withdrawal: QUALIFIERS: Complication of substance-induced condition: unc omplicated Qualified Code(s): F10.230 - Alcohol dependence with withdrawal, uncomplicated (2) Opiate withdrawal: (3) Hypokalemia: (4) Elevated blood pressure reading: (5) Alcohol abuse: (6) Opiate abuse, continuous: (7) Tobacco abuse: PLAN: 1. Orthostatic hypotension secondary to dehydration Will give fluid bolus, maintain on IVF Repeat orthostatics in am 2. Acute opioid and alcohol withdrawal, completed taper 3. Hypokalemia, resolved 4. Elevated blood pressure reading, resolved 5. Nicotine dependence, on replacement, advised to quit Charges/Coding Visit Charges Inpatient E&M: 22492 Subs Hosp L2
[2021-06-01] MEDS: Lactated Ringers 1,000 ML 100 ML IV (13:01)
[2021-06-01] MEDS: 0.9% Saline Lock 10 ML Syringe IV (13:01)
[2021-06-01] MEDS: hydrOXYzine PAM 25 MG Capsule 50 MG PO (19:39)
[2021-06-01 21:16] LABS: Troponin-I HS 5 pg/mL (3.0-78.0)
[2021-06-01] MEDS: traZODone 100 MG Tablet PO (22:54)
[2021-06-02 05:44] LABS: Absolute Lymphocyte Count 2.32 X10^3/uL (0.83-4.51); Absolute Neutrophil Count 3.8 X10^3/uL (2.0-7.7); Basophil# 0.04 X10^3/uL; Basophil% 0.6 % (0-1); Eosinophil# 0.14 X10^3/uL; Eosinophils% 2.1 % (0-5); Hemoglobin 15.3 g/dL (13.0-16.5); Lymphocyte # 2.32 X10^3/ul (0.83-4.51); Lymphocyte % 34.4 % (19-41); Mean Corpuscular Volume 88.2 fL (80-94); Mean Platelet Vol. 9.2 fl (6.2-12.0); Monocyte# 0.41 X10^3/uL; Monocyte% 6.1 % (0-10); NRBC Flagged by Analyzer 0 % (0-5); Neutrophil # 3.83 X10^3/uL (2.7-7.7); Neutrophil % 56.7 % (47-70); Platelet Count 173 K/mm3 (150-450); RBC Distribution Width CV 12.3 % (11.6-14.6); RBC Distribution Width SD 40.1 fl (35.1-43.9); White Blood Count 6.8 K/mm3 (4.4-11.0)
[2021-06-02 05:52] VITALS: BP 108/70; BP 111/78; BP 116/72; PULSE 59; PULSE 75; PULSE 89
[2021-06-02 05:59] VITALS: BP 116/78; PULSE 89; RESP 15; TEMP 36.4; O2SAT 99
[2021-06-02 06:12] LABS: ALB/GLOB Ratio 0.7 RATIO (0.9-2.4); AST(SGOT) 31 U/L (15-37); Alanine Aminotransfer ALT/SGPT 19 U/L (16-61); Albumin, Serum 2.7 g/dL (3.2-5.0); Alkaline Phosphatase 66 U/L (45-117); Anion Gap 6 (5-15); BUN 11 mg/dL (7-18); BUN/Creat Ratio 13.5 RATIO (10-20); Calcium,Total 8.7 mg/dL (8.5-10.1); Chloride 108 mmol/L (98-107); Creatinine, Serum 0.82 mg/dL (0.70-1.30); EST Glomerular Filtration Rate 116 mL/min (>60); Est Glom Filt Rate - Afr Amer 141 mL/min (>60); Estimated Creatinine Clearance 150.37 ml/min; Globulin 3.8 g/dL (2.2-4.2); Glucose 98 mg/dL (74-106); Protein, Total 6.5 g/dL (6.4-8.2); Sodium Level 139 mmol/L (136-145)
[2021-06-02] MEDS: Thiamine Hydrochloride 100 MG Tablet PO (07:32)
[2021-06-02] MEDS: Folic Acid 1 MG Tablet PO (07:33)
--- NOTE | 2021-06-02 08:06 | PCM.DC ---
Discharge Instructions Diet Discharge Diet: No restrictions Activity Discharge Activity: Return to Normal Activity Follow Up Care Test Results: Test results from this visit will be discussed in further detail at your follow-up appointment, if applicable. Discharge Plan Admission Admit Date/Time: 05/28/21 18:11 Primary Reason for Your Visit: Acute opioid/alcohol withdrawal Attending Provider: Malena Andres Primary Care Provider: Young Rocha Instructions Additional Instructions / Restrictions: You are strongly advised to continue to avoid use of opioids. You are also advised to stop smoking. Follow-up with your outpatient drug rehab program as scheduled. Discharge Orders/Prescriptions Prescriptions: Continued albuterol sulfate 90 mcg/actuation HFA aerosol inhaler 1 - 2 puff INHALATION Q6H PRN (Reason: Wheezing) RF: 0 fluticasone propion-salmeterol 250-50 mcg/dose blister with device 1 ea INHALATION BID RF: 0 Discontinued buprenorphine HCl 8 mg tablet, sublingual 8 mg SUBLINGUAL BID RF: 0 Referrals / Follow Up: Young Rocha MD [Primary Care Provider] - Within 2 Weeks Disposition Disposition (needs filled in before D/C Order can be placed): Home, Self Care
--- NOTE | 2021-06-02 08:31 | DS.PCM_ITS ---
Providers Date of Admission: 05/28/21 Date of Discharge: 06/02/21 Primary Care Physician: Dr. Young Rocha MD Reason For Visit: ETOH/OPIATE DETOX Diagnosis Discharge Diagnosis (1) Alcohol withdrawal: Status: Acute Code(s): F10.239 - Alcohol dependence with withdrawal, unspecified Qualifiers: Complication of substance-induced condition: uncomplicated Qualified Code(s): F10.230 - Alcohol dependence with withdrawal, uncomplicated (2) Opiate withdrawal: Status: Acute Code(s): F11.23 - Opioid dependence with withdrawal (3) Hypokalemia: Status: Resolved Code(s): E87.6 - Hypokalemia (4) Elevated blood pressure reading: Status: Resolved Code(s): R03.0 - Elevated blood-pressure reading, without diagnosis of hypertension (5) Alcohol abuse: Status: Chronic Code(s): F10.10 - Alcohol abuse, uncomplicated (6) Opiate abuse, continuous: Status: Chronic Code(s): F11.10 - Opioid abuse, uncomplicated (7) Tobacco abuse: Status: Chronic Code(s): Z72.0 - Tobacco use Medications at Discharge Home Medications albuterol sulfate 1 - 2 puff INHALATION Q6H PRN 05/28/21 fluticasone propion-salmeterol 1 ea INHALATION BID 05/28/21 Hospital Course Operations None Procedures None Summary of Care Provided Minutes Spent on Discharge: 45 Hospital Course: 30-year-old male with past medical history of polysubstance use who presented requesting for medical stabilization from opioid and alcohol withdrawal. [facility] and managed on the buprenorphine and phenobarbital withdrawal protocol. He did fairly well. He was supposed to have been discharged on 06/01/21 but developed orthostatic hypotension. He received IV fluids. Repeat orthostatic vitals this morning are negative. Patient is being discharged to inpatient drug rehab. Physical Exam Narrative Physical exam: General: Alert, Oriented x3, Cooperative, comfortable HEENT: Atraumatic Oral: Moist Mucosa Neck: Supple Lungs: Clear to auscultation Cardiovascular: HS I+II, regular, no murmurs Abdomen: Bowel Sounds Present, Soft, Non Tender Extremities: No edema Weight / BMI Weight Weight: 98.43 kg Body Mass Index (BMI) 27.8 ABG / Lab / Microbiology Data Result Diagrams: 06/02/21 05:14 06/02/21 05:14 Laboratory: Laboratory Results - last 24 hr 06/01/21 20:36: Troponin I High Sens 5 06/02/21 05:14: WBC 6.8, RBC 5.10, Hgb 15.3, Hct 45.0, MCV 88.2, MCH 30.0, MCHC 34.0, RDW Std Deviation 40.1, RDW Coeff of Fredo 12.3, Plt Count 173, MPV 9.2, Immature Gran % (Auto) 0.100, Neut % (Auto) 56.7, Lymph % (Auto) 34.4, [place] % (Auto) 6.1, Eos % (Auto) 2.1, Baso % (Auto) 0.6, Absolute Neuts (auto) 3.8, Absolute Lymphs (auto) 2.32, Nucleated RBC % 0 06/02/21 05:14: Sodium 139, Potassium 4.0, Chloride 108 H, Carbon Dioxide 25.0, Anion Gap 6, BUN 11, Creatinine 0.82, Estim Creat Clear Calc 150.37, Est GFR (MDRD) Af Amer 141, Est GFR (MDRD) Non-Af 116, BUN/Creatinine Ratio 13.5, Glucose 98, Calcium 8.7, Total Bilirubin 0.20, AST 31, ALT 19, Alkaline Phosphatase 66, Total Protein 6.5, Albumin 2.7 L, Globulin 3.8, Albumin/Globulin Ratio 0.7 L D/C Instructions Discharge Diet: No restrictions Meaningful Use Info Meaningful Use Diagnoses (Choose all that apply): None applicable Discharge Plan Admission Admit Date/Time: 05/28/21 18:11 Primary Reason for Your Visit: Acute opioid/alcohol withdrawal Attending Provider: Malena Andres Primary Care Provider: Young Rocha Instructions Additional Instructions / Restrictions: You are strongly advised to continue to avoid use of opioids. You are also advised to stop smoking. Follow-up with your outpatient drug rehab program as scheduled. Discharge Orders/Prescriptions Prescriptions: Continued albuterol sulfate 90 mcg/actuation HFA aerosol inhaler 1 - 2 puff INHALATION Q6H PRN (Reason: Wheezing) RF: 0 fluticasone propion-salmeterol 250-50 mcg/dose blister with device 1 ea INHALATION BID RF: 0 Discontinued buprenorphine HCl 8 mg tablet, sublingual 8 mg SUBLINGUAL BID RF: 0 Referrals / Follow Up: Young Rocha MD [Primary Care Provider] - Within 2 Weeks Disposition Disposition (needs filled in before D/C Order can be placed): Home, Self Care Charges/Coding Visit Charges Inpatient E&M: 85923 Disch Hosp
[2021-06-02 08:44] VITALS: O2SAT 95
== END 2021-06-02 09:06 | disposition home or self-care (01) | DRG 773 ==
LOC: ED 16:50 → MS3 18:19
PROVIDERS: Nurse Practitioner Family; Admitting Provider Internal Medicine; Emergency Provider Emergency Medicine; Visit Provider Internal Medicine
DX: F10.230 Alcohol dependence with withdrawal, uncomplicated (principal); F11.23 Opioid dependence with withdrawal; F14.90 Cocaine use, unspecified, uncomplicated; E87.6 Hypokalemia; F32.A Depression, unspecified; I95.1 Orthostatic hypotension; F41.9 Anxiety disorder, unspecified; E86.0 Dehydration; J45.909 Unspecified asthma, uncomplicated; R03.0 Elevated blood-pressure reading, without diagnosis of hypertension; F17.210 Nicotine dependence, cigarettes, uncomplicated
CPT/HCPCS: 36415; 80053; 80307; 82077; 84484; 85025; 85610; 86703; 93005; 94640; 97802; 99283; 99406; J7040; J7120; A4216

== ENCOUNTER 2021-07-03 15:11 | Emergency (ER) | payer MEDICAID, SELFPAY ==
[2021-07-03 15:12] VITALS: BP 142/105; PULSE 115; RESP 20; TEMP 36.4; O2SAT 96; BMI 33.0
[2021-07-03 15:19] VITALS: RESP 16
--- NOTE | 2021-07-03 15:22 | EKG12_ITS ---
Test Reason : CP Blood Pressure : / mmHG Vent. Rate : 102 BPM Atrial Rate : 102 BPM P-R Int : 136 ms QRS Dur : 094 ms QT Int : 338 ms P-R-T Axes : 046 054 039 degrees QTc Int : 440 ms Sinus tachycardia Otherwise normal ECG Confirmed by ANISA CHINO, GIO ([id number]), editor newspaper JOANNE VILLAGRAN ([id number]) on 07/05/2021 9:16:14 AM Referred By: SHAUNA Confirmed By:GIO LANGE MD
--- NOTE | 2021-07-03 15:23 | EX.ED.DYSGE1 ---
HPI History of Present Illness Chief Complaint: Asthma Informant: patient Onset/Context/Timing Onset: Yesterday Narrative Narrative: Patient has a history of asthma. He reports increasing shortness of breath with cough and sputum. He does have some chest pain which is different from his typical asthma. No history of heart disease but a remote history of IV drug abuse. No fevers. He has sputum. He has been using his inhaler with minimal relief. Nothing else seems to make it better. Worse with exertion. He is not vaccinated to Covid. PFSH PFSH Medical History Alcohol abuse Anxiety Asthma Chest pain Depression Hepatitis C Hypertension Irregular heart beat Migraines Opiate abuse, continuous Smoker Home Medications albuterol sulfate 1 - 2 puff INHALATION Q6H PRN 05/28/21 [History Last Taken Unknown] buprenorphine-naloxone [Suboxone] 1 tab SUBLINGUAL BID 07/03/21 [History Last Taken Unknown] doxycycline hyclate 100 mg PO BID #20 cap 07/03/21 [Rx Last Taken Unknown] prednisone 60 mg PO DAILY 4 Days #24 tab 07/03/21 [Rx Last Taken Unknown] Allergy/AdvReac Type Severity Reaction Status Date / Time No Known Allergies Allergy Verified 07/03/21 15:13 Surgical History History of appendectomy History of spinal surgery Social History Smoking Status: Current every day smoker tobacco type: cigarettes alcohol intake: current alcohol intake frequency: 3 or more drinks per day substance use type: crack/cocaine and heroin ROS ROS ED Constitutional Constitutional ED: Denies chills or fever(s) Eyes Eyes: Denies change in vision ENT ENT ED: Denies rhinorrhea Cardiovascular Cardiovascular: Reports chest pain Respiratory/Chest Respiratory/Chest: Reports cough, dyspnea, dyspnea on exertion and sputum Gastrointestinal Gastrointestinal: Denies abdominal pain, diarrhea, nausea or vomiting Genitourinary Genitourinary ED: Denies dysuria Musculoskeletal Musculoskeletal: Denies arthralgias or myalgias Integumentary Denies abscess or rash Neurologic Neurologic: Denies headache(s) Psychiatric Psychiatric: Denies depression Endocrine Endocrinology: Denies polyuria Allergic/Immunologic Allergic/Immunologic ED: Denies urticaria EXAM Physical Exam Const Vital Signs: 07/03/21 15:12 07/03/21 15:19 07/03/21 15:35 Temperature 97.5 F L Temperature Source Temporal Pulse Rate 115 H 108 H Respiratory Rate 20 H 16 20 H Respiratory Effort Non-Labored Short of Breath Respiratory Depth Normal Respiratory Pattern Normal Blood Pressure 142/105 H Blood Pressure Mean 117 Pulse Ox 96 97 Oxygen Delivery Method Room Air Room Air Room Air 07/03/21 15:39 Temperature Temperature Source Pulse Rate 104 H Respiratory Rate 19 H Respiratory Effort Respiratory Depth Respiratory Pattern Blood Pressure Blood Pressure Mean Pulse Ox Oxygen Delivery Method Positive well nourished and well developed General Appearance ED: well developed HEENT Negative for trauma or tenderness Eyes EOMs intact bilaterally Neck supple Chest Wall inspection of chest normal Resp normal respiratory effort Auscultation: wheezes Cardio regular rate and regular rhythm Extremity normal to inspection General Extremety ED: Negative for edema or tenderness General Extremity: Negative for edema Neuro oriented x3 Sensorium / Orientation: alert Psych mental status grossly normal Skin no rashes or lesions noted MDM MDM MDM Narrative Medical decision making narrative: EKG showed sinus rhythm with a rate of 102. No sign of acute ischemia or infarction pattern. This was interpreted by me. Chest x-ray showed interstitial markings concerning for bronchitis. This was reviewed by the radiologist and myself. Labs were all fairly unremarkable including CBC, BMP, troponin. Covid test negative. Patient was treated with DuoNeb and steroids while awaiting results. On reevaluation, he is slightly improved. Will prescribe a course of steroids as well as doxycycline. Follow-up with primary care. Return for any new or worsening issues. Lab Data Attestation: I reviewed the patient's lab results. Labs: Laboratory Results - last 24 hr 07/03/21 07/03/21 15:30 15:30 WBC 7.4 RBC 5.61 Hgb 16.6 H Hct 48.4 MCV 86.3 MCH 29.6 MCHC 34.3 RDW Std Deviation 37.2 RDW Coeff of Fredo 11.6 Plt Count 187 MPV 9.1 Immature Gran % (Auto) 0.300 Neut % (Auto) 63.2 Lymph % (Auto) 21.9 [place] % (Auto) 8.7 Eos % (Auto) 5.0 Baso % (Auto) 0.9 Absolute Neuts (auto) 4.7 Absolute Lymphs (auto) 1.62 Nucleated RBC % 0 Sodium 139 Potassium 4.1 Chloride 105 Carbon Dioxide 29.0 Anion Gap 5 BUN 16 Creatinine 0.88 Estim Creat Clear Calc 140.11 Est GFR (MDRD) Af Amer 129 Est GFR (MDRD) Non-Af 107 BUN/Creatinine Ratio 18.3 Glucose 102 Calcium 9.7 Troponin I High Sens < 3 L Radiography Diagnostic Testing: Clinical Impression(s) from Imaging Studies Chest X-Ray 07/03/21 15:35 IMPRESSION: Increased interstitial markings, possibly small airway disease related, bronchitis, nonspecific. Consider CT chest for definitive evaluation if possibility of acute pneumonia is present. Electronically Signed: Darlin Matos MD at 16:01 EST Tel , Service support , Discharge Plan Triage Chief Complaint: Asthma ED Provider: Lazarus Patel Dx/Rx/DC Orders Instructions: ED Bronchitis with Wheezing (Adult) Prescriptions: New doxycycline hyclate 100 mg capsule 100 mg PO BID Qty: 20 RF: 0 prednisone 10 mg tablet 60 mg PO DAILY 4 Days Qty: 24 RF: 0 No Action albuterol sulfate 90 mcg/actuation HFA aerosol inhaler 1 - 2 puff INHALATION Q6H PRN (Reason: Wheezing) RF: 0 buprenorphine-naloxone [Suboxone] 8-2 mg Tablet, Sublingual 1 tab SUBLINGUAL BID RF: 0 Primary Care Provider: Young Rocha Referrals: Young Rocha MD [Primary Care Provider] - Disposition Disposition: Home, Self Care
[2021-07-03] MEDS: predniSONE 20 MG Tablet 60 MG PO (15:29)
[2021-07-03 15:35] VITALS: PULSE 108; RESP 20; O2SAT 97
--- NOTE | 2021-07-03 15:35 | RAD_ITS ---
STUDY: X-RAY CHEST REASON FOR EXAM: Male, 30 years old. chest pain I NEED A BREATHING TX, HAVING AN ASTHMA FLARE UP TECHNIQUE: Frontal audible view of the chest COMPARISON: None. FINDINGS: There is no pneumothorax, pulmonary edema, cardiac megaly or effusions. Interstitial markings are increased in visibility, a finding of unclear significance in a patient with small airway disease such as asthma. There is dorsal cervical hardware fixation. RAD/Chest 1 View (Portable) IMPRESSION: Increased interstitial markings, possibly small airway disease related, bronchitis, nonspecific. Consider CT chest for definitive evaluation if possibility of acute pneumonia is present. Electronically Signed: Darlin Matos MD at 16:01 EST Tel , Service support ,
[2021-07-03] MEDS: Ipratropium/Albuterol Sulfate 3 ML AMPUL.NEB INHALATION (15:37)
[2021-07-03 15:39] VITALS: PULSE 104; RESP 19
[2021-07-03 15:41] LABS: Absolute Lymphocyte Count 1.62 X10^3/uL (0.83-4.51); Absolute Neutrophil Count 4.7 X10^3/uL (2.0-7.7); Basophil# 0.07 X10^3/uL; Basophil% 0.9 % (0-1); Eosinophil# 0.37 X10^3/uL; Hematocrit 48.4 % (40-54); Hemoglobin 16.6 g/dL (13.0-16.5); Lymphocyte # 1.62 X10^3/ul (0.83-4.51); Lymphocyte % 21.9 % (19-41); Mean Corp Hgb Conc 34.3 g/dL (32-36); Mean Corpuscular Hgb 29.6 pg (27.0-32.0); Mean Corpuscular Volume 86.3 fL (80-94); Mean Platelet Vol. 9.1 fl (6.2-12.0); Monocyte# 0.64 X10^3/uL; Monocyte% 8.7 % (0-10); NRBC Flagged by Analyzer 0 % (0-5); Neutrophil # 4.67 X10^3/uL (2.7-7.7); Neutrophil % 63.2 % (47-70); Platelet Count 187 K/mm3 (150-450); RBC Distribution Width CV 11.6 % (11.6-14.6); RBC Distribution Width SD 37.2 fl (35.1-43.9); Red Blood Count 5.61 M/mm3 (4.6-6.2); White Blood Count 7.4 K/mm3 (4.4-11.0)
[2021-07-03 15:56] LABS: Anion Gap 5 (5-15); BUN 16 mg/dL (7-18); BUN/Creat Ratio 18.3 RATIO (10-20); Calcium,Total 9.7 mg/dL (8.5-10.1); Chloride 105 mmol/L (98-107); Creatinine, Serum 0.88 mg/dL (0.70-1.30); EST Glomerular Filtration Rate 107 mL/min (>60); Est Glom Filt Rate - Afr Amer 129 mL/min (>60); Estimated Creatinine Clearance 140.11 ml/min; Glucose 102 mg/dL (74-106); Potassium 4.1 mmol/L (3.5-5.1); Sodium Level 139 mmol/L (136-145); Troponin-I HS < 3 pg/mL (3.0-78.0)
[2021-07-03 16:26] VITALS: BP 152/96; PULSE 100; RESP 16; O2SAT 94
--- NOTE | 2021-07-03 16:28 | ED.RN ---
REVIEWED D/C INSTRUCTIONS, FOLLOW UP CARE, PRESCRIPTIONS, AND S/S THAT WOULD WARRANT A RETURN TO THE ED WITH PT. PT VERBALIZED AN UNDERSTANDING AND DENIES FURTHER QUESTIONS FOR THIS RN. PT SKIN P/W/D, RESP EVEN AND UNLABORED, PT A&O X 3, NO DISTRESS NOTED. PT AMBULATED OUT OF ED, GAIT STEADY.
== END 2021-07-03 16:31 | disposition home or self-care (01) ==
PROVIDERS: Emergency Provider Emergency Medicine
DX: J40 Bronchitis, not specified as acute or chronic (principal); J45.909 Unspecified asthma, uncomplicated; F17.210 Nicotine dependence, cigarettes, uncomplicated
CPT/HCPCS: 71045; 80048; 84484; 85025; 87426; 93005; 94640; 99285

== ENCOUNTER 2021-07-10 21:38 | Emergency (ER) | payer MEDICAID, SELFPAY ==
[2021-07-10 21:39] VITALS: BP 166/96; PULSE 108; RESP 18; TEMP 36.7; O2SAT 100; BMI 30.8
[2021-07-10 21:41] VITALS: BP 166/96; PULSE 108; RESP 18; TEMP 36.7; O2SAT 100
--- NOTE | 2021-07-10 21:54 | RAD_ITS ---
INDICATION: SOB EXAMINATION/TECHNIQUE: X-RAY - XR Chest 1 View COMPARISON: None. FINDINGS: LINES/DEVICES: None. LUNGS: Symmetric normal lung volumes. No airspace opacity or abnormal interstitial pattern. No nodule or mass. No pleural effusion or pneumothorax. MEDIASTINUM AND CARDIOVASCULAR STRUCTURES: Normal size and contour of the cardiomediastinal silhouette. No evidence of pulmonary vascular congestion. BONES AND SOFT TISSUES: Posterior, distal cervical fixation hardware incompletely visualized. RAD/Chest 1 View (Portable) IMPRESSION: 1. No radiographic evidence of acute cardiopulmonary disease. Electronically Signed: Gerson He DO at 22:23 EST Tel , Service support ,
[2021-07-10 22:26] VITALS: O2SAT 100
[2021-07-10 22:33] VITALS: O2SAT 95
--- NOTE | 2021-07-10 22:46 | ED.VIS.DYS ---
HPI History of Present Illness Chief Complaint: Asthma Informant: patient Onset/Context/Timing Onset: Weeks Context: gradual Current Severity: Mild Maximum Severity: Mild Worsened by: Nothing Relieved by: Nothing Associated Symptoms cough Chest Pain: Positive for None Narrative Narrative: 30-year-old male history of asthma states has had URI symptoms for 1 to 2 weeks. Has had a cough with wheezing. He was seen previously had a negative Covid test at that time. He said really symptoms are actually improving but he still coughing and wheezing. He has an inhaler at home which he has been using. He denies any fever. He denies any hemoptysis or significant chest pain. PE Risk Factors: Negative for Cancer, OCP + Smoking + > 35, Prior DVT or PE, Recent immobilization, Recent surgery and Recent travel Prior similar symptoms: Yes Recent Illness/Hospitalization: No PFSH PFSH Medical History Alcohol abuse Anxiety Asthma Chest pain Depression Hepatitis C Hypertension Irregular heart beat Migraines Opiate abuse, continuous Smoker Home Medications albuterol sulfate 1 - 2 puff INHALATION Q6H PRN 05/28/21 [History Last Taken Unknown] buprenorphine-naloxone [Suboxone] 1 tab SUBLINGUAL BID 07/03/21 [History Last Taken Unknown] doxycycline hyclate 100 mg PO BID #20 cap 07/03/21 [Rx Last Taken Unknown] prednisone 40 mg PO DAILY 7 Days #14 tab 07/10/21 [Rx Last Taken Unknown] Allergy/AdvReac Type Severity Reaction Status Date / Time No Known Allergies Allergy Verified 07/10/21 21:38 Surgical History History of appendectomy History of spinal surgery Social History Smoking Status: Current every day smoker tobacco type: cigarettes alcohol intake: current alcohol intake frequency: 3 or more drinks per day substance use type: crack/cocaine and heroin ROS ROS ED ROS Narrative Cough, wheezing. Review of Systems ROS Unobtainable: Denies due to encephalopathy Constitutional Constitutional ED: Denies fever(s) Eyes Eyes: Denies change in vision ENT ENT ED: Denies ear pain Cardiovascular Cardiovascular: Denies chest pain Respiratory/Chest Respiratory/Chest: Reports cough and dyspnea Gastrointestinal Gastrointestinal: Denies abdominal pain Genitourinary Genitourinary ED: Denies dysuria Musculoskeletal Musculoskeletal: Denies myalgias Integumentary Denies rash Neurologic Neurologic: Denies headache(s) Psychiatric Psychiatric: Denies depression Endocrine Endocrinology: Denies polyuria Hematologic/Lymphatic Hematologic/Lymphatic: Denies easy bruising Allergic/Immunologic Allergic/Immunologic ED: Denies urticaria EXAM Physical Exam Narrative Exam Narrative: 30-year-old male distress vital signs stable afebrile. Pulse ox 9% on room air no signs hypoxia. HEENT exam unremarkable. Moist extremities. Neck nontender no lymphadenopathy. Lungs cough with scattered expiratory wheezes. No rales rhonchi equal symmetrical no distress. Regular rate and rhythm no murmur 100. Soft nontender. Moving all 4 extremities. Calves are nontender without edema or cords. Neurologically awake and alert with no focal motor deficits. Const Vital Signs: 07/10/21 21:39 07/10/21 21:41 07/10/21 22:26 Temperature 98.1 F 98.1 F Temperature Source Temporal Temporal Pulse Rate 108 H 108 H Respiratory Rate 18 18 Respiratory Effort Blood Pressure 166/96 H 166/96 H Blood Pressure Mean 119 119 Pulse Ox 100 100 100 Oxygen Delivery Method Room Air 07/10/21 22:33 Temperature Temperature Source Pulse Rate Respiratory Rate Respiratory Effort Short of Breath Blood Pressure Blood Pressure Mean Pulse Ox 95 Oxygen Delivery Method Room Air Positive well nourished and well developed; Negative for obese, cachectic, contractures or unkempt General Appearance ED: well developed and NAD; Negative for unkempt, cachectic, contractures or pallor Nutritional Appearance: Negative for cachectic or obese HEENT Reports moist mucous membranes atraumatic; Negative for trauma or tenderness Eyes PERRL and EOMs intact bilaterally General Eye ED: Negative for pale conjunctiva or scleral icterus Neck no lymphadenopathy, supple, no meningeal signs and no JVD General: Negative for tenderness Resp normal respiratory effort and clear to auscultation bilaterally Effort and Inspection: Negative for pain with movement Auscultation: wheezes; Negative for rales, rhonchi or diminished lung sounds Cardio regular rate, regular rhythm, S1 normal heart sound, S2 normal heart sound and no murmurs GI non-tender, non-distended and no masses Auscultation: normoactive bowel sounds Palpation: soft; Negative for tender, guarding or rebound tenderness present Back/Spine no CVA tenderness and normal to inspection General Back: Negative for CVA tenderness Extremity normal to inspection General Extremety ED: Negative for edema or tenderness General Extremity: Negative for edema Neuro oriented x3 and CN's II-XII intact bilaterally Sensorium / Orientation: alert, oriented to person and oriented to place; Negative for oriented to time, orientation impaired, confused, lethargic or stuporous Motor Exam: strength 5/5 throughout Psych mental status grossly normal Appearance: Negative for unkempt Thought Process: normal thought process Skin no wounds General Skin Exam: Negative for jaundice or pallor Lesions: no lesions Rashes: no rashes MDM MDM MDM Narrative Medical decision making narrative: 30-year-old male URI symptoms Covid negative from prior work-up. Chest x-ray done tonight is unremarkable. Will be treated with DuoNeb aerosol x1 and prednisone. To be placed on prednisone for the next 7 days. Radiography Chest X-Ray - ED: 1 View, Read by ED Physician, Read by Radiologist, Normal, Heart, Lungs, Mediastinum, Bony Structures, No Acute Disease and Chronic Changes Diagnostic Testing: Clinical Impression(s) from Imaging Studies Chest X-Ray 07/10/21 21:54 IMPRESSION: 1. No radiographic evidence of acute cardiopulmonary disease. Electronically Signed: Gerson He DO at 22:23 EST Tel , Service support , ADDENDUM: 07/10/21 2283 Portable, single view chest x-ray interpreted by myself the radiologist shows no acute abnormality. Normal cardiac silhouette. No infiltrates. Discussed with patient. Discharge Plan Triage Chief Complaint: Asthma ED Provider: Roderick Urbina Dx/Rx/DC Orders Clinical Impression: Viral URI, Asthma flare Instructions: Asthma Prescriptions: New prednisone 20 mg tablet 40 mg PO DAILY 7 Days Qty: 14 RF: 0 No Action albuterol sulfate 90 mcg/actuation HFA aerosol inhaler 1 - 2 puff INHALATION Q6H PRN (Reason: Wheezing) RF: 0 buprenorphine-naloxone [Suboxone] 8-2 mg Tablet, Sublingual 1 tab SUBLINGUAL BID RF: 0 doxycycline hyclate 100 mg capsule 100 mg PO BID Qty: 20 RF: 0 Primary Care Provider: Young Rocha Referrals: Young Rocha MD [Primary Care Provider] - 1 Week if not improving Activity Restrictions/Additional Instructions: Plenty of fluids and rest. Daily prednisone to decrease inflammation in your lungs and stop the wheezing. Use your inhaler as needed. Follow-up with your doctor if not improving return if worse. Stop smoking. Disposition Disposition: Home, Self Care
[2021-07-10] MEDS: predniSONE 20 MG Tablet 60 MG PO (22:57)
[2021-07-10] MEDS: Ipratropium/Albuterol Sulfate 3 ML AMPUL.NEB INHALATION (22:59)
[2021-07-10 23:01] VITALS: PULSE 97; RESP 12
== END 2021-07-10 23:25 | disposition home or self-care (01) ==
PROVIDERS: Emergency Provider Emergency Medicine
DX: J06.9 Acute upper respiratory infection, unspecified (principal); J45.909 Unspecified asthma, uncomplicated; F17.210 Nicotine dependence, cigarettes, uncomplicated
CPT/HCPCS: 71045; 94640; 94760; 99285

== ENCOUNTER → 2021-07-28 08:20 | Outpatient (CLI) | payer MEDICAID, SELFPAY ==
[2021-07-28 12:41] LABS: Hemoglobin A1c 5.1 % (3.8-5.6)
[2021-07-28 12:47] LABS: Vitamin D,25 Hydroxy 20.4 ng/mL
[2021-07-28 12:54] LABS: ALB/GLOB Ratio 0.8 RATIO (0.9-2.4); AST(SGOT) 26 U/L (15-37); Alanine Aminotransfer ALT/SGPT 72 U/L (16-61); Albumin, Serum 3.3 g/dL (3.2-5.0); Alkaline Phosphatase 67 U/L (45-117); Anion Gap 4 (5-15); BUN 21 mg/dL (7-18); BUN/Creat Ratio 25.3 RATIO (10-20); Calcium,Total 9.1 mg/dL (8.5-10.1); Chloride 110 mmol/L (98-107); Cholesterol 163 mg/dL (200); Creatinine, Serum 0.83 mg/dL (0.70-1.30); EST Glomerular Filtration Rate 114 mL/min (>60); Est Glom Filt Rate - Afr Amer 138 mL/min (>60); Globulin 4.3 g/dL (2.2-4.2); Glucose 87 mg/dL (74-106); High Density Lipoprotein 55 mg/dL; Potassium 4.6 mmol/L (3.5-5.1); Protein, Total 7.6 g/dL (6.4-8.2); Sodium Level 139 mmol/L (136-145); Thyroid Stim Hormone (TSH) 2.05 uIU/mL (0.358-3.74); Triglycerides 70 mg/dL; Very Low Density Lipoprotein 14 mg/dL (5-40)
--- NOTE | 2021-07-28 14:52 | PFTCOMP ---
COMPLETE PULMONARY FUNCTION TEST INTERPRETATION Brief HPI: Patient is a 30 year old male, currently under the care of Dr. Montiel, who presents to [facility] for complete pulmonary function tests secondary to diagnosis of asthma. Respiratory therapist reports good effort and reproducible results. Interpretation: Forced expiration spirometry shows a mild large airways obstructive ventilatory defect with an FEV1 of 88% predicted. There is a significant bronchodilator response in FVC and FEV1 by strict ATS criteria. Spirograms are of good quality and plateau slowly, indicating slowly emptying areas of the lungs. The respiratory flow volume loop shows decreased expiratory flow rates at high lung volumes consistent with small airways obstruction. Lung volumes by body plethysmography show a normal total lung capacity at 7.69 L, 93% predicted. All other lung volumes are within normal limits. Diffusion capacity by carbon monoxide is normal at 90% predicted. The airway resistance is normal. No previous pulmonary function tests were available for review. Impression: Fully reversible mild large airways obstructive ventilatory defect in a pattern consistent with asthma
== END ==
PROVIDERS: PCP Internal Medicine; Referring Provider Internal Medicine; Visit Provider Internal Medicine
DX: J30.2 Other seasonal allergic rhinitis (principal); F10.10 Alcohol abuse, uncomplicated; F11.10 Opioid abuse, uncomplicated; Z72.0 Tobacco use
CPT/HCPCS: 36415; 80053; 80061; 82306; 83036; 84443; 94060; 94726; 94729

== ENCOUNTER 2021-08-24 01:16 | Emergency (ER) | payer MEDICAID, SELFPAY ==
[2021-08-24 01:18] VITALS: BP 156/100; PULSE 127; RESP 14; TEMP 37.4; O2SAT 97; BMI 33.5
[2021-08-24 01:20] VITALS: BP 156/100; PULSE 117; RESP 17; TEMP 37.4; O2SAT 95
--- NOTE | 2021-08-24 01:47 | EKG12_ITS ---
Test Reason : CP Blood Pressure : / mmHG Vent. Rate : 093 BPM Atrial Rate : 093 BPM P-R Int : 140 ms QRS Dur : 090 ms QT Int : 348 ms P-R-T Axes : 047 054 038 degrees QTc Int : 432 ms Normal sinus rhythm with sinus arrhythmia Normal ECG Confirmed by ANISA CHINO, GIO ([id number]), acquisition editor JOANNE VILLAGRAN ([id number]) on 08/24/2021 9:58:44 AM Referred By: PL Confirmed By:GIO LANGE MD
--- NOTE | 2021-08-24 01:47 | RAD_ITS ---
STUDY: X-RAY CHEST REASON FOR EXAM: Male, 30 years old patient with cough. TECHNIQUE: Single AP portable view of the chest. COMPARISON: Chest radiograph dated 07/10/2021. FINDINGS: Cardiac monitoring leads are present. The lungs are hyperexpanded. There are prominent bronchovascular markings of both lungs. There appears to be a right upper lobe pulmonary nodule measuring approximately 1.3 cm in size. This may be associated with the right first costosternal articulation and may represent sequela of degenerative arthropathy. There is no demonstrated pleural abnormality. Normal size heart. Normal mediastinum and benito. There is prominence of the pulmonary hilar arteries with peripheral pulmonary vascular congestion. Normal visualized aortic arch and descending thoracic aorta. There are diffuse degenerative changes of the visualized thoracic spine. Normal visualized ribs, clavicles, and shoulders. The patient has had previous cervical spine surgery. There is no demonstrated abnormality of the visualized soft tissue structures of the upper abdomen. RAD/Chest 1 View (Portable) IMPRESSION: Pulmonary vascular congestion. Electronically Signed: Lula Snyder MD at 3:11 EST , Service support ,
--- NOTE | 2021-08-24 01:48 | EDS_ITS ---
HPI History of Present Illness Chief Complaint: General Illness Informant: patient Narrative Narrative: Patient presents with returning cough and some migratory chest discomfort. He states he has had several episodes of bronchitis over the last 2 or so months. He just started his fourth course of prednisone over this time period. Most of these have been 20 twice a day for 5 to 7 days. He had a positive COVID about 2 weeks ago. But he thought those symptoms were better. He had mild symptoms that were typical for COVID. Over the last 3 days he has had return of some more cough although is not short of breath. But he is having areas of sharp chest pain that migrate all over the place. Its not definitely pleuritic. It comes and goes with its own mind. He has had some slight myalgias. He has had slight fevers. He also notes that he has been urinating more when he takes prednisone but he checked his blood sugar at home and it was 134. He has the ability to check this but has no history of diabetes. His only long-term medicine is Subutex. This has not changed. He has no history of DVT or PE and no family history. He has no travel recent surgery or immobilization. He does have the recent COVID though. No leg pain or swelling. Nothing specifically makes his symptoms better or worse. PFSH PFSH Medical History Alcohol abuse Asthma Chest pain Chronic bronchitis Chronic neck and back pain Hepatitis C Hypertension Irregular heart beat Opiate abuse, continuous Seasonal allergies Smoker Home Medications albuterol sulfate 1 - 2 puff INHALATION Q6H PRN 05/28/21 [History Last Taken Unknown] buprenorphine-naloxone [Suboxone] 1 tab SUBLINGUAL BID 07/03/21 [History Last Taken Unknown] ascorbic acid (vitamin C) 500 mg capsule mg PO 07/21/21 [History Last Taken Unknown] fluticasone 100 mcg-salmeterol 50 mcg/dose blistr powdr for inhalation 1 inh INHALATION BID 07/21/21 [History Last Taken Unknown] fluticasone propionate 50 mcg/actuation nasal spray,suspension 1 spray INTRANASAL DAILY #16 g 07/21/21 [Rx Last Taken Unknown] magnesium 250 mg tablet 250 mg PO DAILY 07/21/21 [History Last Taken Unknown] zinc 50 mg tablet 50 mg PO DAILY 07/21/21 [History Last Taken Unknown] Allergy/AdvReac Type Severity Reaction Status Date / Time No Known Allergies Allergy Verified 08/24/21 01:22 Family History Father Diabetes Hypertension Grandfather Diabetes Heart disease Hypertension Uncle Diabetes Surgical History History of appendectomy History of hand surgery History of spinal surgery Social History Smoking Status: Current every day smoker tobacco type: cigarettes Tobacco: How many years used: 15 alcohol intake: former year quit: 2020 substance use type: former substance user Date of last use: 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, 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 what type of physical activity do you participate in: weight training frequency: 5-6 times per week ROS ROS ED Constitutional Constitutional ED: Reports fever(s) and subjective; Denies sweats Eyes Eyes: Denies blurry vision ENT ENT ED: Reports rhinorrhea; Denies sore throat Cardiovascular Cardiovascular: Reports chest pain and palpitations; Denies racing heartbeat Respiratory/Chest Respiratory/Chest: Reports cough; Denies dyspnea, dyspnea on exertion or sputum Gastrointestinal Gastrointestinal: Denies nausea or vomiting Genitourinary Genitourinary ED: Reports urinary frequency; Denies dysuria or hematuria Musculoskeletal Musculoskeletal: Reports myalgias Integumentary Denies rash Neurologic Neurologic: Denies headache(s), paresthesias or weakness Psychiatric Psychiatric: Denies anxiety or depression Endocrine Endocrinology: Reports polyuria; Denies polydipsia Allergic/Immunologic Allergic/Immunologic ED: Denies urticaria EXAM Physical Exam Const Vital Signs: 08/24/21 01:18 08/24/21 01:20 08/24/21 01:24 Temperature 99.4 F H 99.4 F H Temperature Source Temporal Temporal Pulse Rate 127 H 117 H Respiratory Rate 14 17 Respiratory Pattern Normal Blood Pressure 156/100 H 156/100 H Blood Pressure Mean 118 118 Pulse Ox 97 95 Oxygen Delivery Method Room Air Room Air Positive well nourished and well developed General Appearance ED: well developed and NAD; Negative for pallor HEENT Reports dry mucous membranes Negative for trauma Mouth ED: Yes dry mucous membranes Mouth: dry mucous membranes Eyes PERRL and EOMs intact bilaterally Neck no JVD Chest Wall inspection of chest normal Chest Narrative: Mild tenderness nonfocal he. Resp normal respiratory effort and clear to auscultation bilaterally Resp Narrative: No pleuritic pain. Effort and Inspection: Negative for pain with movement Auscultation: Negative for rales, rhonchi or wheezes Cardio regular rhythm Rate: tachycardic GI normal to inspection, nondistended, normoactive bowel sounds and non-tender Palpation: soft Back/Spine no CVA tenderness Back/Spine Narrative: Well-healed cervical spine scar Extremity normal to inspection General Extremety ED: Negative for edema or tenderness General Extremity: Negative for edema Neuro oriented x3 Sensorium / Orientation: alert; Negative for lethargic or stuporous Psych mental status grossly normal Skin no rashes or lesions noted and no wounds General Skin Exam: Negative for jaundice or pallor MDM MDM MDM Narrative Medical decision making narrative: Blood work showed normal CBC. Electrolytes were normal other than glucose at 141. This is likely due to multiple courses of prednisone. This does not require acute treatment though. D-dimer was negative. Chest x-ray by me was a single view AP chest x-ray. There is no infiltrate. Cardiac silhouette was normal. No sign of pneumothorax. No marked bony abnormalities. Patient has some cough but no sputum production. He is not hypoxic or dyspneic. He has a negative D-dimer. His COVID is also negative. He may have another viral illness. His troponin is also negative leaning strongly against any sign of a viral myocarditis. I encouraged him to wean off the prednisone and we discussed how to do a taper with low terminal dose. He will follow-up with his private physician. Lab Data Attestation: I reviewed the patient's lab results. Labs: Laboratory Results - last 24 hr 08/24/21 08/24/21 01:26 01:26 WBC 7.8 RBC 5.57 Hgb 15.9 Hct 46.6 MCV 83.7 MCH 28.5 MCHC 34.1 RDW Std Deviation 34.2 L RDW Coeff of Fredo 11.3 L Plt Count 224 MPV 9.7 Immature Gran % (Auto) 0.500 Neut % (Auto) 81.8 H Lymph % (Auto) 13.2 L [place] % (Auto) 4.1 Eos % (Auto) 0.1 Baso % (Auto) 0.3 Absolute Neuts (auto) 6.4 Absolute Lymphs (auto) 1.03 Nucleated RBC % 0 D-Dimer Quant (PE/DVT) 0.29 Discharge Plan Triage Chief Complaint: General Illness ED Provider: Magdiel Leggett Dx/Rx/DC Orders Clinical Impression: URI with cough and congestion Instructions: ED URI, Viral, No Abx (Adult) Prescriptions: No Action fluticasone propion-salmeterol [Advair Diskus] 100-50 mcg/dose blister with device 1 inh inhalation BID RF: 0 magnesium 250 mg tablet 250 mg PO DAILY RF: 0 ascorbic acid (vitamin C) 500 mg capsule PO RF: 0 zinc 50 mg tablet 50 mg PO DAILY RF: 0 fluticasone propionate 50 mcg/actuation spray,suspension 1 spray intranasal DAILY Qty: 16 RF: 1 albuterol sulfate 90 mcg/actuation HFA aerosol inhaler 1 - 2 puff INHALATION Q6H PRN (Reason: Wheezing) RF: 0 buprenorphine-naloxone [Suboxone] 8-2 mg Tablet, Sublingual 1 tab SUBLINGUAL BID RF: 0 Primary Care Provider: Luly Montiel Referrals: Luly Montiel MD [Primary Care Provider] - 3-5 Days if not improving Disposition Disposition: Home, Self Care
[2021-08-24 02:03] LABS: Absolute Lymphocyte Count 1.03 X10^3/uL (0.83-4.51); Absolute Neutrophil Count 6.4 X10^3/uL (2.0-7.7); Basophil# 0.02 X10^3/uL; Basophil% 0.3 % (0-1); Eosinophil# 0.01 X10^3/uL; Eosinophils% 0.1 % (0-5); Hematocrit 46.6 % (40-54); Hemoglobin 15.9 g/dL (13.0-16.5); Lymphocyte # 1.03 X10^3/ul (0.83-4.51); Lymphocyte % 13.2 % (19-41); Mean Corp Hgb Conc 34.1 g/dL (32-36); Mean Corpuscular Hgb 28.5 pg (27.0-32.0); Mean Corpuscular Volume 83.7 fL (80-94); Mean Platelet Vol. 9.7 fl (6.2-12.0); Monocyte# 0.32 X10^3/uL; Monocyte% 4.1 % (0-10); NRBC Flagged by Analyzer 0 % (0-5); Neutrophil # 6.36 X10^3/uL (2.7-7.7); Neutrophil % 81.8 % (47-70); Platelet Count 224 K/mm3 (150-450); RBC Distribution Width CV 11.3 % (11.6-14.6); RBC Distribution Width SD 34.2 fl (35.1-43.9); Red Blood Count 5.57 M/mm3 (4.6-6.2); White Blood Count 7.8 K/mm3 (4.4-11.0)
[2021-08-24] MEDS: 0.9% Normal Saline 1,000 ML 999 ML IV (02:08)
[2021-08-24 02:24] LABS: D-Dimer Quantitative (DVT/PE) 0.29 FEU/ug/m (0.27-0.49)
[2021-08-24 02:40] LABS: Anion Gap 6 (5-15); BUN 17 mg/dL (7-18); Calcium,Total 9.7 mg/dL (8.5-10.1); Chloride 104 mmol/L (98-107); EST Glomerular Filtration Rate 92 mL/min (>60); Est Glom Filt Rate - Afr Amer 111 mL/min (>60); Glucose 141 mg/dL (74-106); Potassium 4.6 mmol/L (3.5-5.1); Sodium Level 137 mmol/L (136-145); Troponin-I HS 4 pg/mL (3.0-78.0)
[2021-08-24 03:03] VITALS: BP 119/90; PULSE 96; RESP 16; O2SAT 100
== END 2021-08-24 03:04 | disposition home or self-care (01) ==
PROVIDERS: Emergency Provider Emergency Medicine; PCP Internal Medicine; Visit Provider Emergency Medicine
DX: J06.9 Acute upper respiratory infection, unspecified (principal); I10 Essential (primary) hypertension; Z20.822 Contact with and (suspected) exposure to COVID-19; F17.210 Nicotine dependence, cigarettes, uncomplicated; J45.909 Unspecified asthma, uncomplicated; Z79.899 Other long term (current) drug therapy; G89.29 Other chronic pain; Z86.16 Personal history of COVID-19
CPT/HCPCS: 71045; 80048; 84484; 85025; 85379; 87426; 93005; 96360; 99285; J7030; A4216

== ENCOUNTER 2021-11-10 04:41 | Inpatient (IN) | payer MEDICAID, SELFPAY ==
[2021-11-10] VITALS (10 sets, daily range): BP systolic 130–167; BP diastolic 73–99; PULSE 55–77; RESP 14–18; TEMP 36.6–37.2; O2SAT 94–97; BMI 35.4; BMI 34.7
--- NOTE | 2021-11-10 04:47 | RAD_ITS ---
STUDY: X-RAY CHEST REASON FOR EXAM: Male, 31 years old. chest pain TECHNIQUE: AP COMPARISON: 08/24/2021. FINDINGS: The lungs are clear and expanded. There is no demonstrated pleural abnormality. Stable 1 cm nodular density projecting over the right first rib. Normal size heart. Normal mediastinum and benito. Normal visualized pulmonary arteries. Normal visualized aortic arch and descending thoracic aorta. Normal visualized thoracic spine. There is cervical spine fixation hardware. There is no demonstrated abnormality of the visualized soft tissue structures of the upper abdomen. RAD/Chest 1 View (Portable) IMPRESSION: Negative x-ray examination of the chest. No interval change. Electronically Signed: Dain Kauffman MD at 6:09 EDT ,
--- NOTE | 2021-11-10 04:47 | EKG12_ITS ---
Test Reason : CP Blood Pressure : / mmHG Vent. Rate : 078 BPM Atrial Rate : 078 BPM P-R Int : 148 ms QRS Dur : 100 ms QT Int : 394 ms P-R-T Axes : 048 053 036 degrees QTc Int : 449 ms Normal sinus rhythm Normal ECG Confirmed by BRIDGET CHINO, NIRMALA ([id number]), copy editor MATTHEW KELLY ([id number]) on 11/16/2021 10:47:37 AM Referred By: MILTON Confirmed By:NIRMALA GILL MD
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
[2021-11-10 04:57] LABS: Absolute Lymphocyte Count 1.29 X10^3/uL (0.83-4.51); Absolute Neutrophil Count 3.2 X10^3/uL (2.0-7.7); Basophil# 0.04 X10^3/uL; Basophil% 0.8 % (0-1); Eosinophil# 0.07 X10^3/uL; Eosinophils% 1.4 % (0-5); Hematocrit 45.1 % (40-54); Hemoglobin 15.5 g/dL (13.0-16.5); Lymphocyte # 1.29 X10^3/ul (0.83-4.51); Lymphocyte % 26.4 % (19-41); Mean Corp Hgb Conc 34.4 g/dL (32-36); Mean Corpuscular Volume 87.4 fL (80-94); Mean Platelet Vol. 8.7 fl (6.2-12.0); Monocyte# 0.29 X10^3/uL; Monocyte% 5.9 % (0-10); NRBC Flagged by Analyzer 0 % (0-5); Neutrophil # 3.19 X10^3/uL (2.7-7.7); Neutrophil % 65.3 % (47-70); Platelet Count 175 K/mm3 (150-450); RBC Distribution Width CV 12.2 % (11.6-14.6); RBC Distribution Width SD 38.6 fl (35.1-43.9); Red Blood Count 5.16 M/mm3 (4.6-6.2); White Blood Count 4.9 K/mm3 (4.4-11.0)
[2021-11-10 05:17] LABS: Anion Gap 3 (5-15); BUN 5 mg/dL (7-18); BUN/Creat Ratio 5.7 RATIO (10-20); Calcium,Total 8.6 mg/dL (8.5-10.1); Chloride 105 mmol/L (98-107); Creatinine, Serum 0.88 mg/dL (0.70-1.30); EST Glomerular Filtration Rate 106 mL/min (>60); Est Glom Filt Rate - Afr Amer 128 mL/min (>60); Estimated Creatinine Clearance 123.28 ml/min; Glucose 122 mg/dL (74-106); Potassium 3.8 mmol/L (3.5-5.1); Sodium Level 139 mmol/L (136-145); Troponin-I HS (w/2H Reflex) < 3 pg/mL (3.0-78.0)
--- NOTE | 2021-11-10 06:29 | PCM.HP.STD ---
HPI - General General Date of Admission: 11/10/21 Date of Service: 11/10/21 Chief Complaint: Opiate and EtOH abuse recurrent, withdrawal HPI Narrative The patient is a 31 y/o M w/ PMHx: Hepatitis C, HTN, Chronic neck and back pain, Tobacco use, Asthma, Polysubstance abuse (EtOH 3 tall boys daily, last use early AM, Opiates crack cocaine intermittently and Heroine 1 gm daily, used via snorting, last use evening prior to presentation), Tobacco use who presents to the [facility] ED on 11/10/21 with ongoing substance abuse, both EtOH and opiates with acute EtOH withdrawal and acute Opiate withdrawal, onset starting this AM, progressively worsening with onset of nausea, tremors, intermittent mild agitation, fatigue, body aches including chest pain complaint, restlessness. He is interested in attaining both clean and sober status. He notes that his been clean and sober following his recent admission 05/2021 however he was recently discharged from residential treatment and following his discharge he began living [address] [place] and started using approximately 1 week prior to current presentation. He notes there was supposed to help him with his living situation but this did not come to pass. Work-up in the ED included T 90.9, heart rate 77, BP 167/99 initially with repeat 133/91, respiratory rate 15, 97% on room air, CBC with WC 4.9, hemoglobin 15.5, platelet 175 without marked shift, BMP unremarkable aside glucose 122, troponin less than 3, chest x-ray with no acute cardiopulmonary findings, EKG with sinus rhythm with no acute evidence of ischemia. Pending urine drug screen, alcohol level, hepatic profile. [facility] Medical History Alcohol abuse Asthma Chest pain Chronic bronchitis Chronic neck and back pain Hepatitis C Hypertension Irregular heart beat Opiate abuse, continuous Seasonal allergies Smoker Home Medications NK 11/10/21 [History Last Taken Unknown] Allergy/AdvReac Type Severity Reaction Status Date / Time No Known Allergies Allergy Verified 11/10/21 04:47 Family History Father Diabetes Hypertension Grandfather Diabetes Heart disease Hypertension Uncle Diabetes Surgical History History of appendectomy History of hand surgery History of spinal surgery Social History (Updated 11/10/21 @ 06:[address] Radha Franks MD) housing: homeless Smoking Status: Current every day smoker tobacco type: cigarettes Smoking packs per day: 1 Smoking cigarettes per day: 20.0 Years smoked: 16 Smoking pack-years: 16.00 alcohol intake: current alcohol intake frequency: 3 or more drinks per day details: Starting drinking again 11/04/21, 3 tall boys daily. substance use type: crack/cocaine and heroin what type of physical activity do you participate in: weight training frequency: 5-6 times per week ROS ROS Narrative Admission Review of Systems: CONSTITUTIONAL: No weight loss, fever, chills, + weakness or fatigue. HEENT: Eyes: No visual loss, blurred vision, double vision or yellow sclerae. Ears, Nose, Throat: No hearing loss, sneezing, congestion, runny nose or sore throat. SKIN: No rash or itching, lesions, wounds. CARDIOVASCULAR: No chest pain, chest pressure or chest discomfort, palpitations, edema, orthopnea, syncopal events. RESPIRATORY: No shortness of breath, cough or sputum, wheezing, hemoptysis. GASTROINTESTINAL: + anorexia, nausea, mild abdominal discomfort, No vomiting, diarrhea, melena, BRBPR. GENITOURINARY: No dysuria, frequency, urgency or retention. NEUROLOGICAL: No headache, dizziness, syncope, paralysis, ataxia, numbness or tingling in the extremities, focal weakness, change in bowel or bladder control, seizure. MUSCULOSKELETAL: + muscle, back pain, joint pain or stiffness. HEMATOLOGIC: No anemia, bleeding or bruising. LYMPHATICS: No enlarged nodes. No history of splenectomy. PSYCHIATRIC: + history of depression or anxiety. ENDOCRINOLOGIC: No reports of sweating, cold or heat intolerance. No polyuria or polydipsia. ALLERGIES: + history of asthma, hives, eczema or rhinitis. Vital Signs Vital Signs Vital Signs: 11/10/21 04:42 11/10/21 04:47 11/10/21 04:52 Temperature 98.9 F Temperature Source Oral Pulse Rate 77 Respiratory Rate 15 Respiratory Effort Normal Non-Labored Blood Pressure 167/99 H Blood Pressure Mean 121 Pulse Ox 97 96 Oxygen Delivery Method Room Air Room Air 11/10/21 06:08 Temperature Temperature Source Pulse Rate 60 Respiratory Rate 16 Respiratory Effort Blood Pressure 133/91 H Blood Pressure Mean 105 Pulse Ox 94 Oxygen Delivery Method Room Air Weight Weight: 246 lb 7.629 oz Body Mass Index (BMI) 35.4 Physical Exam Narrative Physical Examination: General: Awake, alert, oriented x 3 and cooperative, seated upright in the ED bed in no apparent distress. Skin: Normal color, normal turgor, no icterus, no cyanosis. HEENT: AT/NC, EOMI, PERRLA, mildly dry MM, no carotid bruits or JVD noted. Lungs: CTA bilaterally, moderate effort, mild decrease BL bases, no rales, ronchi or wheezing. Heart: Currently regular rate and rhythm; no gallop, rub audible. Abdomen: Soft, mild generalized discomfort but no rebound or guarding, ND, hyperactive BS, no HSM. Extremities: No cyanosis, clubbing, or edema. Neurological: Patient awake, alert, oriented x 3, cognitive function intact; pupils equally reactive to light and accommodation, cranial nerves II-XII grossly normal, moving all 4 extremities, no focal deficits, strength mildly global decreased secondary to acute presentation, mild tremors, mildly agitated and restless. Psychiatric: Affect appears fatigued but also restless, no acute evidence of depressive or anxiety feelings. Results Lab / Micro Data Result Diagrams: 11/10/21 04:50 11/10/21 04:50 Labs: Laboratory Results - last 24 hr 11/10/21 04:50: WBC 4.9, RBC 5.16, Hgb 15.5, Hct 45.1, MCV 87.4, MCH 30.0, MCHC 34.4, RDW Std Deviation 38.6, RDW Coeff of Fredo 12.2, Plt Count 175, MPV 8.7, Immature Gran % (Auto) 0.200, Neut % (Auto) 65.3, Lymph % (Auto) 26.4, [place] % (Auto) 5.9, Eos % (Auto) 1.4, Baso % (Auto) 0.8, Absolute Neuts (auto) 3.2, Absolute Lymphs (auto) 1.29, Nucleated RBC % 0 11/10/21 04:50: Sodium 139, Potassium 3.8, Chloride 105, Carbon Dioxide 31.0, Anion Gap 3 L, BUN 5 L, Creatinine 0.88, Estim Creat Clear Calc 123.28, Est GFR (MDRD) Af Amer 128, Est GFR (MDRD) Non-Af 106, BUN/Creatinine Ratio 5.7 L, Glucose 122 H, Calcium 8.6, Troponin I High Sens < 3 L Rhythm Strip Rhythm Strip: Sinus Rhythm Rate: 78 Ectopy: None Radiology Impression Chest X-Ray 11/10/21 04:47 IMPRESSION: Negative x-ray examination of the chest. No interval change. Electronically Signed: Dain Kauffman MD at 6:09 EDT , Assessment & Plan Assessment/Plan (1) Opiate withdrawal: (2) Alcohol withdrawal: QUALIFIERS: Complication of substance-induced condition: uncomplicated Qualified Code(s): F10.230 - Alcohol dependence with withdrawal, uncomplicated PLAN: The patient is a 31 y/o M w/ PMHx: Hepatitis C, HTN, Chronic neck and back pain, Tobacco use, Asthma, Polysubstance abuse (EtOH 3 tall boys daily, last use early AM, Opiates crack cocaine intermittently and Heroine 1 gm daily, used via snorting, last use evening prior to presentation), Tobacco use who presents to the [facility] ED on 11/10/21 with ongoing substance abuse, both EtOH and opiates with acute EtOH withdrawal and acute Opiate withdrawal, onset starting this AM, progressively worsening with onset of nausea, tremors, intermittent mild agitation, fatigue, body aches including chest pain complaint, restlessness. #1. Acute EtOH Withdrawal: Will admit to medical surgical floor, routine labs obtained in the ED upon presentation and as noted still pending urine drug screen, ethyl alcohol level and hepatic profile. Given interest in sobriety, will initiate and continue on protocol with taper course of Phenobarbital, scheduled gabapentin for seizure prophylaxis, as needed Catapres, Bentyl, Vistaril, IV fluids, IV antiemetics, Tylenol as needed for pain. Will consult Case management for assistance for transition to next level of rehabilitation care. Mag, phos pending. Maintain on CIWA protocol concurrently. #2. Acute Opiate Withdrawal: Given patient concurrent usage of several opiates, will additionally initiate and continue on protocol with tapering course of Subutex, as needed tylenol, ibuprofen, bowel regimen, gabapentin, Bentyl, Vistaril, methocarbamol, clonidine, PRN nightly trazodone for insomnia, IV fluids, IV antiemetics. Once patient clinically improved and completion of taper nearing will plan consultation with case management for transition to next level of rehabilitation care. #3. Polysubstance Abuse, Chronic: We will obtain HIV and hepatitis panel given significant polysubstance use although does deny IV substance use. Patient currently not candidate for hep C treatment currently as needs to be clean, sober x 6 months, documented attendance NA or AA meetings, counseling and ongoing negative drug screens. #4. Tobacco use: Encourage tobacco cessation, RT consulted for education, NR ordered. #5. Hypertension: Not on regimen, initial BP elevated, repeat with diastolic elevation, will monitor and if appropriate add oral regimen, as needed IV hydralazine in interim. #6. Chronic asthma: Patient not on any chronic regimen, will have as needed albuterol. #7. Chronic back and neck pain: Large part of #2, encourage frequent positional changes #8. DVT Prophylaxis: Low risk, encourage ambulation. Charges/Coding Visit Charges Inpatient E&M: 78651 Init Hosp L3
[2021-11-10 06:55] LABS: Reflex Troponin-HS? (from REC) Y
[2021-11-10 07:12] LABS: AST(SGOT) 39 U/L (15-37); Alanine Aminotransfer ALT/SGPT 68 U/L (16-61); Albumin, Serum 3.8 g/dL (3.2-5.0); Alkaline Phosphatase 87 U/L (45-117); Globulin 3.7 g/dL (2.2-4.2); Phosphorus 3.3 mg/dL (2.5-4.9); Protein, Total 7.5 g/dL (6.4-8.2)
[2021-11-10 07:43] LABS: Troponin-I HS < 3 pg/mL (3.0-78.0)
[2021-11-10 07:49] LABS: Amphetamine Urine VISTA NEGATIVE (<1000 ng/mL); Barbiturate Urine VISTA NEGATIVE (< 200 ng/mL); Benzodiazepine Urine VISTA NEGATIVE (< 200 ng/mL); Cocaine Urine VISTA POSITIVE (< 300 ng/mL); Ecstacy Urine VISTA NEGATIVE (< 500 ng/mL); Methadone Urine VISTA NEGATIVE (< 300 ng/mL); PCP Urine VISTA NEGATIVE (< 25 ng/mL); THC Urine VISTA NEGATIVE (< 50 ng/mL); Vista UDS pH Range 5
[2021-11-10] MEDS: 0.9% Saline Lock 10 ML Syringe IV (08:35)
[2021-11-10] MEDS: Methocarbamol 750 MG Tablet 1500 MG PO ×3 (08:35→22:54)
[2021-11-10] MEDS: Lactated Ringers 1,000 ML 125 ML IV (08:35)
[2021-11-10] MEDS: Phenobarbital 32.4 MG Tablet 64.8 MG PO ×5 (08:35→22:54)
[2021-11-10] MEDS: Folic Acid 1 MG Tablet PO (08:41)
[2021-11-10] MEDS: Thiamine Hydrochloride 100 MG Tablet PO (08:41)
[2021-11-10 08:54] LABS: HIV - WCH Non-Reactive (Nonreactive)
--- NOTE | 2021-11-10 14:13 | PCM.PN.HOSP ---
Subjective Subjective Patient admitted with opioid and alcohol use disorder with withdrawal. Patient is very lethargic and sleepy. Could not keep the eyes open. Feeling weak, anxiety and restlessness Objective Data Objective Data Vital Signs: Vital Signs Temp Pulse Resp BP Pulse Ox 98.0 F 60 16 135/89 H 96 11/10/21 10:00 11/10/21 10:00 11/10/21 10:00 11/10/21 10:00 11/10/21 10:00 Oxygen Delivery Method Room Air Weight: 241 lb 13.553 oz Body Mass Index (BMI) 34.7 Lab / Micro Data Result Diagrams: 11/10/21 04:50 11/10/21 04:50 Labs: Laboratory Results - last 24 hr 11/10/21 04:50: WBC 4.9, RBC 5.16, Hgb 15.5, Hct 45.1, MCV 87.4, MCH 30.0, MCHC 34.4, RDW Std Deviation 38.6, RDW Coeff of Fredo 12.2, Plt Count 175, MPV 8.7, Immature Gran % (Auto) 0.200, Neut % (Auto) 65.3, Lymph % (Auto) 26.4, [place] % (Auto) 5.9, Eos % (Auto) 1.4, Baso % (Auto) 0.8, Absolute Neuts (auto) 3.2, Absolute Lymphs (auto) 1.29, Nucleated RBC % 0 11/10/21 04:50: Sodium 139, Potassium 3.8, Chloride 105, Carbon Dioxide 31.0, Anion Gap 3 L, BUN 5 L, Creatinine 0.88, Estim Creat Clear Calc 123.28, Est GFR (MDRD) Af Amer 128, Est GFR (MDRD) Non-Af 106, BUN/Creatinine Ratio 5.7 L, Glucose 122 H, Calcium 8.6, Troponin I High Sens < 3 L 11/10/21 04:50: Phosphorus 3.3, Magnesium 2.0, Total Bilirubin 0.20, Direct Bilirubin 0.10, AST 39 H, ALT 68 H, Alkaline Phosphatase 87, Total Protein 7.5, Albumin 3.8, Globulin 3.7 11/10/21 04:50: Ethyl Alcohol 46.0 11/10/21 06:58: HIV 1&2 Antibody Non-Reactive 11/10/21 06:58: Troponin I High Sens < 3 L 11/10/21 07:05: Urine Opiates Screen NEGATIVE, Urine Methadone Screen NEGATIVE, Ur Barbiturates Screen NEGATIVE, Ur Phencyclidine Scrn NEGATIVE, Ur Amphetamines Screen NEGATIVE, MDMA (Ecstasy) Screen NEGATIVE, U Benzodiazepines Scrn NEGATIVE, Urine Cocaine Screen POSITIVE H, U Cannabinoids Screen NEGATIVE, Ur Drug Screen Comment Radiography Diagnostic Testing: Radiology Impression Chest X-Ray 11/10/21 04:47 IMPRESSION: Negative x-ray examination of the chest. No interval change. Electronically Signed: Dain Kauffman MD at 6:09 EDT , Rhythm Strip Rhythm Strip: Sinus Rhythm Rate: 78 Ectopy: None Physical Exam Narrative General: Lethargic, drowsy. Confused. Oriented x2 HEENT: Atraumatic, PERRLA, EOMI, Normocephalic Oral: No Gingival or Mucosal Lesions/ Ulcerations Neck: Supple, No JVD, Negative Carotid Bruits Lungs: Air entry diminished in bilateral lung bases. No crepitation/rhonchi Cardiovascular: Regular rate, Regular Rhythm, Normal S1, Normal S2, No murmurs Abdomen: Bowel Sounds Present, Soft, Non Tender, Non-Distended : No renal angle tenderness. No suprapubic tenderness. Extremities: No edema, Capillary Refill Less than 3 Seconds Skin: No rashes, No breakdown Musculoskeletal: Mild tremors. No Tenderness to Palpation of Joints or Extremities Neurological: Cranial nerves II-XII grossly intact, DTR 2+/4. No focal deficit Psych/Mental Status: Drowsy, lethargy. Flat affect Assessment & Plan Assessment/Plan (1) Opiate withdrawal: (2) Alcohol withdrawal: QUALIFIERS: Complication of substance-induced condition: uncomplicated Qualified Code(s): F10.230 - Alcohol dependence with withdrawal, uncomplicated PLAN: The patient is a 31 y/o male admitted with acute opioid withdrawal and alcohol withdrawal syndrome. #1. Acute alcohol withdrawal syndrome with history of chronic alcohol use and disorder and dependence: Patient is admitted on [facility] floor. [facility] monitoring. Wanted to consult. Patient is on phenobarbitone-based protocol with taper course along with other adjunctive medications including gabapentin for seizure. Serum potassium, magnesium and phosphorus level normal. #2. Acute Opiate Withdrawal withdrawal syndrome with chronic opioid use and dependence: Patient was using IV opioids in the past about 8 months ago but changed to snorting. On buprenorphine based other supportive medications. Monitor CINA. #3. Chronic polysubstance Abuse: Patient has history of chronic hepatitis C. There is no use of testing during hospital course as patient is not going to be treated here. Follow-up in the outpatient. HIV 1 and 2 antibody nonreactive. Hepatitis panel is pending #4. Chronic cigarette smoking tobacco use: Patient smokes cigarettes 1 pack daily, 16 pack years of smoking. Advised smoking cessation #5. Hypertension: Initial BP was elevated related to alcohol withdrawal. Blood pressure profile is improved. #6. Chronic asthma: Patient not on any chronic regimen, needed albuterol. #7. Chronic back and neck pain: #8. DVT Prophylaxis: Low risk, encourage ambulation. Charges/Coding Visit Charges Inpatient E&M: 24117 Subs Hosp L2
--- NOTE | 2021-11-10 14:19 | ADDICTION ---
This journalists and other writers met with PT to conduct ASAM, MSE, AUDIT, DUDIT assessments and to plan for d/c. PT A+Ox4 and participated actively. All assessments completed and placed in PT's chart. PT plans to f/u with Alcohol and Narcotics Anonymous. PT did not indicate a need for transportation post d/c from [facility].
--- NOTE | 2021-11-10 14:50 | CHAPLAIN ---
Type of Pastoral Visit _x__ Initial Visit ___ Follow-up Visit ___ On-call Visit ___ General Patient Visit ___ Spiritual Assessment ___ Family Conference ___ Bereavement ___ Rapid Response ___ Code Blue ___ Other (describe below) Pastoral Care Referral From _x__ Patient ___ Family ___ Nurse ___ Physician ___ Urgent Care Physician Assistant ___ Angle Bender ___ Other (describe below) Sacrament/Intervention _x__ Active listening ___ Anointing ___ Scientology ___ Bereavement ___ Communion ___ Suzanne exploration ___ ___ Life review ___ Prayer ___ Reconciliation ___ Sacrament of Sick _x__ Supportive presence ___ Wedding ___ Other (describe below) Pastoral Comments patient easily awakens when this turret lathe tender entered the room but he was unaware that lunch tray had been brought in; when shown his lunch tray patient eagerly eats and then is more alert to talk; pt gives some recent life review and expresses frustration at lack of housing in a same place away from drugs; pt cannot name anyone that is a safe and supportive person in his life however he says that a friend will give me a room so I can get back to work; pt was sleepy so visit ended; pt said thanks for coming
[2021-11-10] MEDS: Dicyclomine 10 MG Capsule 20 MG PO ×2 (15:22→22:54)
[2021-11-10] MEDS: hydrOXYzine PAM 25 MG Capsule 50 MG PO (15:22)
[2021-11-10] MEDS: Ondansetron 8 MG Tablet PO (15:22)
[2021-11-10] MEDS: Buprenorphine HCl 2 MG TAB.SUBL SL (22:54)
[2021-11-10] MEDS: Acetaminophen 325 MG Tablet 650 MG PO (22:54)
[2021-11-11 04:25] VITALS: BP 110/75; PULSE 50; RESP 18; TEMP 35.8; O2SAT 94
[2021-11-11] MEDS: Phenobarbital 32.4 MG Tablet 64.8 MG PO ×5 (04:32→22:57)
[2021-11-11] MEDS: Buprenorphine HCl 2 MG TAB.SUBL SL ×3 (06:44→22:57)
[2021-11-11 06:47] VITALS: O2SAT 97
[2021-11-11 10:00] VITALS: BP 110/72; PULSE 66; RESP 14; TEMP 36.4; O2SAT 95
[2021-11-11] MEDS: Thiamine Hydrochloride 100 MG Tablet PO (10:01)
[2021-11-11] MEDS: Folic Acid 1 MG Tablet PO (10:01)
--- NOTE | 2021-11-11 11:48 | PCM.PN.HOSP ---
Subjective Subjective Patient is still sleepy lethargy. He opens eyes on verbal stimulus. Not active in conversation Objective Data Objective Data Vital Signs: Vital Signs Temp Pulse Resp BP Pulse Ox 97.5 F L 66 14 110/72 95 11/11/21 10:00 11/11/21 10:00 11/11/21 10:00 11/11/21 10:00 11/11/21 10:00 Oxygen Delivery Method Room Air Weight: 241 lb 13.553 oz Body Mass Index (BMI) 34.7 Intake & Output: Intake and Output for Last 24 Hours 11/09/21 11/10/21 11/11/21 23:59 23:59 23:59 Intake Total 1000 / 1000 Balance 1000 / 1000 Lab / Micro Data Result Diagrams: 11/10/21 04:50 11/10/21 04:50 Rhythm Strip Rhythm Strip: Sinus Rhythm Rate: 78 Ectopy: None Physical Exam Narrative General: Lethargic, sleepy, wakes up intermittently. Oriented x3 HEENT: Atraumatic, PERRLA, EOMI, Normocephalic Oral: No Gingival or Mucosal Lesions/ Ulcerations Neck: Supple, No JVD, Negative Carotid Bruits Lungs: Air entry diminished in bilateral lung bases. No crepitation/rhonchi Cardiovascular: Regular rate, Regular Rhythm, Normal S1, Normal S2, No murmurs Abdomen: Bowel Sounds Present, Soft, Non Tender, Non-Distended : No renal angle tenderness. No suprapubic tenderness. Extremities: No edema, Capillary Refill Less than 3 Seconds Skin: No rashes, No breakdown Musculoskeletal: Mild tremors. No Tenderness to Palpation of Joints or Extremities Neurological: Cranial nerves II-XII grossly intact, DTR 2+/4. No focal deficit Psych/Mental Status: Flat affect Assessment & Plan Assessment/Plan (1) Opiate withdrawal: (2) Alcohol withdrawal: QUALIFIERS: Complication of substance-induced condition: uncomplicated Qualified Code(s): F10.230 - Alcohol dependence with withdrawal, uncomplicated PLAN: The patient is a 31 y/o male admitted with acute opioid withdrawal and alcohol withdrawal syndrome. #1. Acute alcohol withdrawal syndrome with history of chronic alcohol use and disorder and dependence: Patient is admitted on MedSur floor. CIWA monitoring. Wanted to consult. Patient is on phenobarbitone-based protocol with taper course along with other adjunctive medications including gabapentin for seizure. Serum potassium, magnesium and phosphorus level normal. 11/11: and feels little better.11/11 Clinical condition better than yesterday. CIWA 1 #2. Acute Opiate Withdrawal withdrawal syndrome with chronic opioid use and dependence: Patient was using IV opioids in the past about 8 months ago but changed to snorting. On buprenorphine based other supportive medications. Monitor CINA. 11/11: CINA score 0 #3. Chronic polysubstance Abuse: Patient has history of chronic hepatitis C. There is no use of testing during hospital course as patient is not going to be treated here. Follow-up in the outpatient. HIV 1 and 2 antibody nonreactive. Hepatitis panel is pending #4. Chronic cigarette smoking tobacco use: Patient smokes cigarettes 1 pack daily, 16 pack years of smoking. Advised smoking cessation #5. Hypertension: Initial BP was elevated related to alcohol withdrawal. Blood pressure profile is improved. #6. Chronic asthma: Patient not on any chronic regimen, needed albuterol. #7. Chronic back and neck pain: #8. DVT Prophylaxis: Low risk, encourage ambulation. Charges/Coding Visit Charges Inpatient E&M: 65928 Subs Hosp L2
[2021-11-11 15:15] VITALS: BP 147/99; PULSE 81; RESP 18; TEMP 36.4; O2SAT 97
[2021-11-11] MEDS: Methocarbamol 750 MG Tablet 1500 MG PO ×2 (15:24→22:57)
[2021-11-11] MEDS: Ondansetron 8 MG Tablet PO (21:06)
[2021-11-11 21:53] VITALS: BP 151/89; PULSE 62; RESP 18; TEMP 36.8; O2SAT 97
[2021-11-12] VITALS (7 sets, daily range): BP systolic 108–142; BP diastolic 55–89; PULSE 66–75; RESP 16–18; TEMP 36.4–36.6; O2SAT 95–99
[2021-11-12] MEDS: Phenobarbital 32.4 MG Tablet 64.8 MG PO ×5 (03:47→21:45)
[2021-11-12] MEDS: Buprenorphine HCl 2 MG TAB.SUBL SL ×3 (06:46→21:45)
[2021-11-12] MEDS: Folic Acid 1 MG Tablet PO (08:04)
[2021-11-12] MEDS: Thiamine Hydrochloride 100 MG Tablet PO (08:04)
--- NOTE | 2021-11-12 08:13 | PN.HOSP_ITS ---
Subjective Subjective The patient is sleepy. He states he does not feel good but wants to go home tomorrow. Objective Data Objective Data Vital Signs: Vital Signs Temp Pulse Resp BP Pulse Ox 97.7 F L 66 18 110/75 95 11/12/21 03:44 11/12/21 03:44 11/12/21 03:44 11/12/21 03:44 11/12/21 07:20 Oxygen Delivery Method Room Air Weight: 241 lb 13.553 oz Body Mass Index (BMI) 34.7 Intake & Output: Intake and Output for Last 24 Hours 11/10/21 11/11/21 11/12/21 23:59 23:59 23:59 Intake Total 1000 / 1000 800 / 800 Balance 1000 / 1000 800 / 800 Lab / Micro Data Result Diagrams: 11/10/21 04:50 11/10/21 04:50 Rhythm Strip Rhythm Strip: Sinus Rhythm Rate: 78 Ectopy: None Assessment & Plan Assessment/Plan (1) Opiate withdrawal: (2) Alcohol withdrawal: QUALIFIERS: Complication of substance-induced condition: uncomplicated Qualified Code(s): F10.230 - Alcohol dependence with withdrawal, uncomplicated PLAN: The patient is a 31 y/o male admitted with acute opioid withdrawal and alcohol withdrawal syndrome. #1. Acute alcohol withdrawal syndrome with history of chronic alcohol use and disorder and dependence: Patient is admitted on MedSurg floor. CIWA monitoring. Wanted to consult. Patient is on phenobarbitone-based protocol with taper co urse along with other adjunctive medications including gabapentin for seizure. Serum potassium, magnesium and phosphorus level normal. 11/11: and feels little better.11/11 Clinical condition better than yesterday. CIWA 1 11/12: Patient is still sleepy, drowsy and lethargy unclear whether because of phenobarbitone and buprenorphine or because of withdrawal. He is coherent, oriented x4. CIWA score 2 #2. Acute Opiate Withdrawal withdrawal syndrome with chronic opioid use and dependence: Patient was using IV opioids in the past about 8 months ago but changed to snorting. On buprenorphine based other supportive medications. Monitor CINA. 11/11: CINA score 0 11/12 Cina score 3 #3. Chronic polysubstance Abuse: Patient has history of chronic hepatitis C. There is no use of testing during hospital course as patient is not going to be treated here. Follow-up in the outpatient. HIV 1 and 2 antibody nonreactive. Hepatitis panel is pending #4. Chronic cigarette smoking tobacco use: Patient smokes cigarettes 1 pack daily, 16 pack years of smoking. Advised smoking cessation #5. Hypertension: Initial BP was elevated related to alcohol withdrawal. Blood pressure profile is improved. #6. Chronic asthma: Patient not on any chronic regimen, needed albuterol. #7. Chronic back and neck pain: #8. DVT Prophylaxis: Low risk, encourage ambulation. Charges/Coding Visit Charges Inpatient E&M: 77388 Subs Hosp L2
[2021-11-13 04:06] VITALS: BP 123/74; PULSE 61; RESP 18; TEMP 36.4; O2SAT 97
[2021-11-13] MEDS: Phenobarbital 32.4 MG Tablet 64.8 MG PO ×2 (04:08→09:53)
[2021-11-13 07:35] VITALS: O2SAT 96
--- NOTE | 2021-11-13 07:56 | PCM.DC ---
Discharge Instructions Diet Discharge Diet: No restrictions Activity Discharge Activity: Return to Normal Activity and May Not Drive Weight Bearing Status: Weight bearing as tolerated Dressing / Incision Call your doctor if you observe: Fever of 101 or Higher, Coldness, Increased Pain, Numbness or Tingling, Change in Color, Inability to urinate, Inability to have a bowel movement, Shortness of breath, Dizziness, Fainting spells, Swelling in the ankles, Chest pain, Prolonged hiccupping, Increased palpitations (irregular heartbeat), Calf discomfort and Uncontrolled pain Follow Up Care Test Results: Test results from this visit will be discussed in further detail at your follow-up appointment, if applicable. Discharge Plan Admission Admit Date/Time: 11/10/21 06:26 Primary Reason for Your Visit: Acute alcohol and opioid withdrawal Attending Provider: Bereket Moralez Primary Care Provider: Luly Montiel Instructions Patient Instructions: ED Cocaine And Crack Abuse, ED Chest Pain, Uncertain Cause Additional Instructions / Restrictions: Chest pain was most likely caused by the cocaine. That increases your blood pressure, your heart rate and constriction of blood vessels which could have caused the chest pain. Understand and every time you use cocaine you are risking from cardiac arrest, heart attack, abnormal rhythm or severely elevated blood pressure. Strongly recommend following up with 180 for drug abuse counseling. Follow-up with your doctor as needed. Return if feeling worse. Discharge Orders/Prescriptions Prescriptions: No Action NK RF: 0 Referrals / Follow Up: Luly Montiel MD [Primary Care Provider] - As Needed [facility] [STAFF PHYSICIAN] - As soon as possible (attend Outpatient rehab Within 2 to 3 days) Disposition Disposition (needs filled in before D/C Order can be placed): Home, Self Care
[2021-11-13] MEDS: Thiamine Hydrochloride 100 MG Tablet PO (08:01)
[2021-11-13] MEDS: Folic Acid 1 MG Tablet PO (08:02)
[2021-11-13 08:11] VITALS: BP 145/84; PULSE 80; RESP 16; TEMP 36.4; O2SAT 100
--- NOTE | 2021-11-13 10:05 | PCM.DC.SUM ---
Providers Date of Admission: 11/10/21 Date of Discharge: 11/13/21 Primary Care Physician: Dr. Luly Montiel MD Reason For Visit: ACUTE OPIATE WITHDRAWAL Diagnosis Discharge Diagnosis (1) Opiate withdrawal: Status: Acute Code(s): F11.23 - Opioid dependence with withdrawal (2) Alcohol withdrawal: Status: Acute Code(s): F10.239 - Alcohol dependence with withdrawal, unspecified Qualifiers: Complication of substance-induced condition: uncomplicated Qualified Code(s): F10.230 - Alcohol dependence with withdrawal, uncomplicated Medications at Discharge Home Medications folic acid 1 mg PO DAILY@0800 #30 tab 11/13/21 nicotine 21 mg TRANSDERMAL DAILY #30 ea 11/13/21 thiamine HCl (vitamin B1) [Vitamin B-1] 100 mg PO DAILYCM #30 tab 11/13/21 Hospital Course Summary of Care Provided Hospital Course: The patient is a 31 y/o male admitted with acute opioid withdrawal and alcohol withdrawal syndrome. #1. Acute alcohol withdrawal syndrome with history of chronic alcohol use and disorder and dependence: Patient is admitted on [facility] floor. CIWA monitoring. Wanted to consult. Patient is on phenobarbitone-based protocol with taper course along with other adjunctive medications including gabapentin for seizure. Serum potassium, magnesium and phosphorus level normal. 11/11: and feels little better.11/11 Clinical condition better than yesterday. CIWA 1 11/12: Patient is still sleepy, drowsy and lethargy unclear whether because of phenobarbitone and buprenorphine or because of withdrawal. He is coherent, oriented x4. CIWA score 2 11/13: Patient is awake alert oriented x3. Patient wants to go home. Has follow-up date for outpatient alcohol and opioid rehab. CIWA score 1. #2. Acute Opiate Withdrawal withdrawal syndrome with chronic opioid use and dependence: Patient was using IV opioids in the past about 8 months ago but changed to snorting. On buprenorphine based other supportive medications. Monitor CINA. 11/11: CINA score 0 11/12 Cina score 3 11/13: Cina score 3. #3. Chronic polysubstance Abuse: Patient has history of chronic hepatitis C. There is no use of testing during hospital course as patient is not going to be treated here. Follow-up in the outpatient. HIV 1 and 2 antibody nonreactive. Hepatitis panel is pending #4. Chronic cigarette smoking tobacco use: Patient smokes cigarettes 1 pack daily, 16 pack years of smoking. Advised smoking cessation #5. Hypertension: Initial BP was elevated related to alcohol withdrawal. Blood pressure profile is improved. #6. Chronic asthma: Patient not on any chronic regimen, needed albuterol. #7. Chronic back and neck pain: #8. DVT Prophylaxis: Low risk, encourage ambulation. Discharge medication reconciliation done. Discharge follow-up instructions completed. Discharge process discussed with the patient and all questions were answered to patient's satisfaction. Total time spent, exact 35 minutes on discharge meds reconciliation, examination, coordination of care with nurses and ancillary staff, review of imaging and blood test and discussion with the patient on follow-up instructions. Physical Exam Narrative General: Alert, awake, oriented x3 HEENT: Atraumatic, PERRLA, EOMI, Normocephalic Oral: No Gingival or Mucosal Lesions/ Ulcerations Neck: Supple, No JVD, Negative Carotid Bruits Lungs: Air entry diminished in bilateral lung bases. No crepitation/rhonchi Cardiovascular: Regular rate, Regular Rhythm, Normal S1, Normal S2, No murmurs Abdomen: Bowel Sounds Present, Soft, Non Tender, Non-Distended : No renal angle tenderness. No suprapubic tenderness. Extremities: No edema, Capillary Refill Less than 3 Seconds Skin: No rashes, No breakdown Musculoskeletal: Mild tremors. No Tenderness to Palpation of Joints or Extremities Neurological: Cranial nerves II-XII grossly intact, DTR 2+/4. No focal deficit Psych/Mental Status: Flat affect Weight / BMI Weight Weight: 241 lb 13.553 oz Body Mass Index (BMI) 34.7 ABG / Lab / Microbiology Data Result Diagrams: 11/10/21 04:50 11/10/21 04:50 D/C Instructions Discharge Diet: No restrictions Weight Bearing Status: Weight bearing as tolerated Call your doctor if you observe: Fever of 101 or Higher, Coldness, Increased Pain, Numbness or Tingling, Change in Color, Inability to urinate, Inability to have a bowel movement, Shortness of breath, Dizziness, Fainting spells, Swelling in the ankles, Chest pain, Prolonged hiccupping, Increased palpitations (irregular heartbeat), Calf discomfort and Uncontrolled pain Meaningful Use Info Meaningful Use Diagnoses (Choose all that apply): None applicable Discharge Plan Admission Admit Date/Time: 11/10/21 06:26 Primary Reason for Your Visit: Acute alcohol and opioid withdrawal Attending Provider: Bereket Moralez Primary Care Provider: Luly Montiel Instructions Patient Instructions: ED Cocaine And Crack Abuse, ED Chest Pain, Uncertain Cause Additional Instructions / Restrictions: Chest pain was most likely caused by the cocaine. That increases your blood pressure, your heart rate and constriction of blood vessels which could have caused the chest pain. Understand and every time you use cocaine you are risking from cardiac arrest, heart attack, abnormal rhythm or severely elevated blood pressure. Strongly recommend following up with 180 for drug abuse counseling. Follow-up with your doctor as needed. Return if feeling worse. Discharge Orders/Prescriptions Prescriptions: New thiamine HCl (vitamin B1) [Vitamin B-1] 100 mg Tablet 100 mg PO DAILYCM Qty: 30 RF: 0 nicotine 21 mg/24 hr Patch 24 Hour 21 mg transdermal DAILY Qty: 30 RF: 0 folic acid 1 mg Tablet 1 mg PO DAILY@0800 Qty: 30 RF: 0 Referrals / Follow Up: Luly Montiel MD [Primary Care Provider] - As Needed [facility] [STAFF PHYSICIAN] - As soon as possible (attend Outpatient rehab Within 2 to 3 days) Disposition Disposition (needs filled in before D/C Order can be placed): Home, Self Care Charges/Coding Visit Charges Inpatient E&M: 30630 Disch Hosp
[2021-11-13] MEDS: Buprenorphine HCl 2 MG TAB.SUBL SL (10:39)
== END 2021-11-13 11:50 | disposition home or self-care (01) | DRG 773 ==
LOC: ED 06:27 → MS3 06:38
PROVIDERS: Admitting Provider Family Medicine; Emergency Provider Emergency Medicine; PCP Internal Medicine; Visit Provider Internal Medicine
DX: F10.239 Alcohol dependence with withdrawal, unspecified (principal); F11.23 Opioid dependence with withdrawal; B18.2 Chronic viral hepatitis C; F14.10 Cocaine abuse, uncomplicated; I10 Essential (primary) hypertension; F17.210 Nicotine dependence, cigarettes, uncomplicated; J45.909 Unspecified asthma, uncomplicated; F41.9 Anxiety disorder, unspecified; M54.9 Dorsalgia, unspecified; M54.2 Cervicalgia; G89.29 Other chronic pain
CPT/HCPCS: 71045; 80048; 80076; 80307; 82077; 83735; 84100; 84484; 85025; 86703; 86704; 86705; 86706; 86707; 86803; 87340; 87350; 93005; 99285; J7120; A4216

== ENCOUNTER 2022-01-02 03:44 | Inpatient (IN) | payer MEDICAID, SELFPAY ==
[2022-01-02 03:46] VITALS: BP 139/78; PULSE 85; RESP 16; TEMP 36.6; O2SAT 96; BMI 28.1
--- NOTE | 2022-01-02 04:56 | EX.ED.SAOD ---
HPI History of Present Illness Chief Complaint: Substance Abuse Informant: patient Narrative Narrative: Patient presents for detox from opiates, alcohol and benzodiazepines. He uses a fair amount of opiates every day. He does inject. He denies history of injection infections though. He also drinks 2-4 tall boy beers a day. If he does not drink he does feel he gets shaky. He also uses about 2 mg of Xanax daily. He went through detox about 6 weeks ago. He was dry for least a week or so it sounds like but then he states that life caught up with him and he started using again. He has been on a 3-day binge. He last drank and used fentanyl about 3 hours ago. He does not feel that he is in withdrawal yet but he will be soon. He has a history of asthma but states its not bothering him now. He has been eating and drinking. He denies any physical complaints. [facility] Medical History Alcohol abuse Alcohol abuse Anxiety Asthma Chest pain Chronic bronchitis Chronic neck and back pain Cocaine abuse Depression Hepatitis C Heroin abuse Hypertension Irregular heart beat Opiate abuse, continuous Seasonal allergies Smoker Home Medications folic acid 1 mg PO DAILY@0800 #30 tab 11/13/21 [Rx Last Taken Unknown] nicotine 21 mg TRANSDERMAL DAILY #30 ea 11/13/21 [Rx Last Taken Unknown] thiamine HCl (vitamin B1) [Vitamin B-1] 100 mg PO DAILYCM #30 tab 11/13/21 [Rx Last Taken Unknown] Allergy/AdvReac Type Severity Reaction Status Date / Time No Known Allergies Allergy Verified 11/10/21 04:47 Family History Father Diabetes Hypertension Grandfather Diabetes Heart disease Hypertension Uncle Diabetes Surgical History History of appendectomy History of hand surgery History of spinal surgery Social History housing: homeless Smoking Status: Current every day smoker tobacco type: cigarettes alcohol intake: current alcohol intake frequency: 3 or more drinks per day details: Starting drinking again 11/04/21, 3 tall boys daily. substance use type: crack/cocaine and heroin what type of physical activity do you participate in: weight training frequency: 5-6 times per week ROS ROS ED Constitutional Constitutional ED: Denies chills or fever(s) Eyes Eyes: Denies blurry vision ENT ENT ED: Reports other Details: No rhinorrhea at this time ; Denies rhinorrhea Cardiovascular Cardiovascular: Denies chest pain Respiratory/Chest Respiratory/Chest: Denies cough or dyspnea Gastrointestinal Gastrointestinal: Denies diarrhea, nausea or vomiting Genitourinary Genitourinary ED: Denies dysuria Musculoskeletal Musculoskeletal: Denies arthralgias or myalgias Integumentary Reports other Details: Patient injects but denies any injection site pain or issues ; Denies rash Neurologic Neurologic: Denies headache(s) Psychiatric Psychiatric: Denies depression, suicidal ideation or suicidal thoughts Endocrine Endocrinology: Denies polyuria Hematologic/Lymphatic Hematologic/Lymphatic: Denies easy bleeding or easy bruising Allergic/Immunologic Allergic/Immunologic ED: Denies urticaria EXAM Physical Exam Const Vital Signs: 01/02/22 03:46 Temperature 97.8 F Temperature Source Oral Pulse Rate 85 Respiratory Rate 16 Blood Pressure 139/78 H Blood Pressure Mean 98 Pulse Ox 96 Oxygen Delivery Method Room Air Patient is awake and alert. He is not lethargic. He does not look to be in acute withdrawal or uncomfortable. Positive well nourished and well developed General Appearance ED: well developed and NAD HEENT Reports moist mucous membranes Eyes Eyes Narrative: Patient evidently does have a history of hepatitis C but I do not see jaundice or icterus General Eye ED: Negative for pale conjunctiva or scleral icterus Neck no JVD Resp normal respiratory effort and clear to auscultation bilaterally Cardio regular rate and regular rhythm GI soft to palpation and non-tender Back/Spine no CVA tenderness Extremity Extremity Narrative: Patient does have signs of newer and older track reese on all 4 extremities. But none of these look infected or erythematous or swollen. Neuro Sensorium / Orientation: alert Psych mental status grossly normal Attitude: No belligerent Mood & Affect: Negative for depressed Skin Rashes: no rashes MDM MDM MDM Narrative Medical decision making narrative: Case was discussed with hospitalist. Patient will be admitted inpatient medicine for detox. Discharge Plan Dx/Rx/DC Orders Clinical Impression: Opiate abuse, continuous, Alcohol abuse, Benzodiazepine abuse Disposition Disposition: Acute Care Hospital [facility]
--- NOTE | 2022-01-02 06:04 | PCM.HP.STD ---
[facility] - General General Date of Admission: 01/02/22 HPI Narrative KACIE JACKSON, is a 31 M with a significant history of hypertension; hepatitis C; alcohol abuse; benzo abuse; IV drug abuse and tobacco who presents to the emergency department with help with detoxification. IV drug use: Of note patient shoots fentanyl and heroin. He uses about 1 g a day. He has been using for the past 3 years. Last time he used was about 2 hours prior to presentation. Xanax use: Of note patient use about 2 mg of Xanax per day. He has been using on and off about 10 years. In the past 2 months he has been using more. Last time he used was a day prior to presentation. He takes it orally. Alcohol abuse: Patient drinks about 2 tall boys of beer per day. In the past 2 days because he has not had money so he has been drinking about 1 tall boys per day. He has been drinking alcohol on and off for the past 12 years. He report that he started to have withdrawal symptoms of chills; runny nose and restless legs. Of note patient has intermittent productive cough. [facility] Medical History Alcohol abuse Alcohol abuse Anxiety Asthma Chest pain Chronic bronchitis Chronic neck and back pain Cocaine abuse Depression Hepatitis C Heroin abuse Hypertension Irregular heart beat Opiate abuse, continuous Seasonal allergies Smoker Home Medications folic acid 1 mg PO DAILY@0800 #30 tab 11/13/21 [Rx Last Taken Unknown] nicotine 21 mg TRANSDERMAL DAILY #30 ea 11/13/21 [Rx Last Taken Unknown] thiamine HCl (vitamin B1) [Vitamin B-1] 100 mg PO DAILYCM #30 tab 11/13/21 [Rx Last Taken Unknown] Allergy/AdvReac Type Severity Reaction Status Date / Time No Known Allergies Allergy Verified 11/10/21 04:47 Family History Father Diabetes Hypertension Grandfather Diabetes Heart disease Hypertension Uncle Diabetes Surgical History History of appendectomy History of hand surgery History of spinal surgery Social History housing: homeless Smoking Status: Current every day smoker tobacco type: cigarettes alcohol intake: current alcohol intake frequency: 3 or more drinks per day details: Starting drinking again 11/04/21, 3 tall boys daily. substance use type: crack/cocaine and heroin what type of physical activity do you participate in: weight training frequency: 5-6 times per week ROS ROS Narrative Pertinent positives and pertinent negatives as noted in HPI. All other systems were reviewed and are negative. Vital Signs Vital Signs Vital Signs: 01/02/22 03:46 Temperature 97.8 F Temperature Source Oral Pulse Rate 85 Respiratory Rate 16 Blood Pressure 139/78 H Blood Pressure Mean 98 Pulse Ox 96 Oxygen Delivery Method Room Air Weight Weight: 99.5 kg Body Mass Index (BMI) 28.1 Physical Exam Narrative Physical exam: General: Well-nourished, well-developed. Head: Normocephalic, atraumatic, no tenderness Eyes: Vision is grossly intact. EOMI ENT, no trauma, moist mucous membranes, no rhinorrhea Neck: Nontender, full range of motion, no spinal tenderness, deformities, step-off CVS: Regular rate and rhythm. S1-S2 present. No murmur, gallop or rub. Respiratory : Wheezes, chest wall nontender, no wheezing Abdomen: Soft, nontender, nondistended, normal bowel sounds, no masses : Deferred Back: Nontender, no CVA tenderness, no midline spinal tenderness, deformities, step-offs Extremities: Nontender full range of motion, no trauma Skin: Needle track reese on all extremities. Normal color, no trauma, abrasions Neuro: Alert, oriented, cranial nerves II through XII grossly intact. Psychiatry: Normal mood. Normal affect. Not depressed. Not anxious. Assessment & Plan Assessment/Plan (1) Opiate abuse, continuous: (2) Alcohol abuse: (3) Tobacco abuse: PLAN: Alcohol dependence and desire for detoxification Patient be started on phenobarbital and other adjunctive medications: Gabapentin as needed; dicyclomine as needed; Vistaril as needed; Imodium as needed; trazodone as needed; Zofran as needed; scheduled thiamine; and schedule folic acid. Monitor CIWA score Opioid dependence and withdrawal Patient be started on Subutex and other adjunctive medications as above; and the methocarbamol as needed as well as clonidine. Monitor COWS and CINA score Tobacco abuse Counseled Nicotine patch and as needed nicotine gum prescribed. Hypertension Not on home hypertensive medications. Trend blood pressures DVT prophylaxis Low risk Encourage to ambulate Charges/Coding Visit Charges Inpatient E&M: 90723 Init Hosp L2
[2022-01-02 07:09] VITALS: BP 130/70; PULSE 87; RESP 16; TEMP 37.1; O2SAT 97
[2022-01-02 07:37] VITALS: BP 114/68; PULSE 60; RESP 16; TEMP 36.6; O2SAT 97
[2022-01-02 07:38] VITALS: BMI 27.6
[2022-01-02] MEDS: Folic Acid 1 MG Tablet PO (08:23)
[2022-01-02] MEDS: Phenobarbital 32.4 MG Tablet 64.8 MG PO ×5 (08:23→23:57)
--- NOTE | 2022-01-02 09:57 | PN.HOSP_ITS ---
Subjective Subjective Patient seen and examined. He complained of lethargy and tremors and some cramps. He had no other complaints and review of systems was otherwise negative. He has remained hemodynamically stable. Objective Data Objective Data Vital Signs: Vital Signs Temp Pulse Resp BP Pulse Ox 97.9 F 60 16 114/68 97 01/02/22 07:37 01/02/22 07:37 01/02/22 07:37 01/02/22 07:37 01/02/22 07:37 Oxygen Delivery Method Room Air Weight: 215 lb 8 oz Body Mass Index (BMI) 27.6 Physical Exam Const alert and no apparent distress Orientation / Consciousness: lethargic Exam Limitations: no limitations HEENT head/scalp atraumatic, moist oral mucous membranes and oropharynx normal Head and Scalp: normocephalic Eyes PERRL, EOMs intact bilaterally and conjunctivae normal Neck no lymphadenopathy, supple and no JVD Resp normal respiratory effort, no retractions, no use of accessory muscles and clear to auscultation bilaterally Cardio regular rate, regular rhythm, S1 normal heart sound, S2 normal heart sound and no murmurs GI normal to inspection, nondistended, normoactive bowel sounds Extremity normal to inspection, full ROM and no clubbing, cyanosis or edema Peripheral Pulses: Yes pulses 2+ throughout Skin no rashes or lesions noted Neuro oriented x3, CN's II-XII intact bilaterally and moves all extremities Sensorium / Orientation: awake and alert Psych affect normal Assessment & Plan Assessment/Plan (1) Opiate abuse, continuous: (2) Alcohol abuse: (3) Benzodiazepine abuse: PLAN: #Acute opioid withdrawal * on benzodiazepine withdrawal with buprenorphine * monitor CINA score * on adjunctive meds for symptomatic relief * #Alcohol and benzodiazepine abuse * on phenobarbital withdrawal protocol * on thiamine, folic acid and multivite * adjunctive meds for symptomatic relief * #nicotine dependence * counseled to quit * nicotine patch 21mg daily * #History of asthma: stable. Breathing treatment with bronchodilators DVT prophylaxis: low risk, encouraged to ambulate Charges/Coding Visit Charges Inpatient E&M: 81880 Subs Hosp L2
[2022-01-02] MEDS: Thiamine Hydrochloride 100 MG Tablet PO (11:29)
[2022-01-02 13:08] VITALS: BP 119/92; PULSE 72; RESP 16; TEMP 36.5; O2SAT 95
[2022-01-02] MEDS: Ondansetron 8 MG Tablet PO (16:10)
[2022-01-02] MEDS: hydrOXYzine PAM 25 MG Capsule 50 MG PO (16:10)
[2022-01-02 17:37] VITALS: BP 120/79; PULSE 77; RESP 16; TEMP 36.1; O2SAT 96
[2022-01-02] MEDS: Gabapentin 300 MG Capsule PO (17:43)
[2022-01-02] MEDS: Dicyclomine 10 MG Capsule 20 MG PO (20:10)
[2022-01-02 23:55] VITALS: BP 106/69; PULSE 73; RESP 16; TEMP 36.5; O2SAT 97
[2022-01-03 03:58] VITALS: BP 99/65; PULSE 62; RESP 16; TEMP 36.2; O2SAT 96
[2022-01-03] MEDS: Phenobarbital 32.4 MG Tablet 64.8 MG PO ×6 (04:03→23:47)
[2022-01-03] MEDS: Methocarbamol 750 MG Tablet 1500 MG PO ×2 (04:04→11:11)
[2022-01-03] MEDS: Folic Acid 1 MG Tablet PO (07:34)
[2022-01-03] MEDS: Thiamine Hydrochloride 100 MG Tablet PO (07:34)
--- NOTE | 2022-01-03 08:52 | CASEMGMT ---
ELROY called Darin executive relations specialist and notified her of patient's [facility] admission. Ingris Orozco ENAMEL PULVERIZER ALEX
[2022-01-03 09:47] VITALS: BP 120/75; PULSE 78; RESP 16; TEMP 36.8; O2SAT 92
--- NOTE | 2022-01-03 10:19 | PN.HOSP_ITS ---
Subjective Subjective Patient seen and examined. He was resting calmly in bed. However he complained of nausea and vomiting overnight and generally feeling weak. Review of systems is otherwise negative. Objective Data Objective Data Vital Signs: Vital Signs Temp Pulse Resp BP Pulse Ox 98.2 F 78 16 120/75 92 01/03/22 09:47 01/03/22 09:47 01/03/22 09:47 01/03/22 09:47 01/03/22 09:47 Oxygen Delivery Method Room Air Weight: 215 lb 7.994 oz Body Mass Index (BMI) 27.6 Intake & Output: Intake and Output for Last 24 Hours 01/01/22 01/02/22 01/03/22 23:59 23:59 23:59 Intake Total 500 / 500 Output Total 0 / 0 Balance 500 / 500 Physical Exam Const alert, oriented x3 and no apparent distress Exam Limitations: no limitations HEENT head/scalp atraumatic, moist oral mucous membranes and oropharynx normal Head and Scalp: normocephalic Eyes PERRL, EOMs intact bilaterally and conjunctivae normal Neck no lymphadenopathy, supple and no JVD Resp normal respiratory effort, no retractions, no use of accessory muscles and clear to auscultation bilaterally Cardio regular rate, regular rhythm, S1 normal heart sound, S2 normal heart sound and no murmurs GI normal to inspection, nondistended, normoactive bowel sounds Extremity normal to inspection, full ROM and no clubbing, cyanosis or edema Peripheral Pulses: Yes pulses 2+ throughout Skin no rashes or lesions noted Neuro oriented x3, CN's II-XII intact bilaterally and moves all extremities Sensorium / Orientation: awake and alert Psych affect normal Assessment & Plan Assessment/Plan (1) Opiate abuse, continuous: (2) Alcohol abuse: (3) Benzodiazepine abuse: PLAN: #Acute opioid withdrawal * on benzodiazepine withdrawal with buprenorphine * monitor CINA score * on adjunctive meds for symptomatic relief * #Alcohol and benzodiazepine abuse * on phenobarbital withdrawal protocol * on thiamine, folic acid and multivite * adjunctive meds for symptomatic relief * #nicotine dependence * counseled to quit * nicotine patch 21mg daily * #History of asthma: stable. Breathing treatment with bronchodilators DVT prophylaxis: low risk, encouraged to ambulate Disposition: prefers to be discharged to an inpatient rehab facility on discharge. case management and social media director on board to help facilitate that. Charges/Coding Visit Charges Inpatient E&M: 20638 Subs Hosp L2
[2022-01-03 11:04] VITALS: O2SAT 92
[2022-01-03] MEDS: Gabapentin 300 MG Capsule PO (11:11)
[2022-01-03] MEDS: Buprenorphine HCl 2 MG TAB.SUBL SL ×2 (11:22→18:44)
--- NOTE | 2022-01-03 11:51 | ADDICTION ---
This television script writer met with PT to conduct ASAM, MSE, AUDIT, DUDIT assessments and to plan for d/c. PT A+Ox4 and participated actively. All assessments completed and placed in PT's chart. PT plans to f/u with [facility] on 01/05 at 10am for follow-up treatment services. [facility] will provide transportation post d/c from [facility].
[2022-01-03 15:45] VITALS: BP 112/70; PULSE 77; RESP 18; TEMP 36.5; O2SAT 96
[2022-01-03 21:39] VITALS: BP 123/80; PULSE 91; RESP 16; TEMP 36.6; O2SAT 93
[2022-01-04] MEDS: Phenobarbital 32.4 MG Tablet 64.8 MG PO ×5 (03:03→21:41)
[2022-01-04] MEDS: Buprenorphine HCl 2 MG TAB.SUBL SL ×3 (03:03→18:21)
[2022-01-04] MEDS: cloNIDine HCl 0.1 MG Tablet PO (03:30)
[2022-01-04] MEDS: hydrOXYzine PAM 25 MG Capsule 50 MG PO ×3 (03:30→20:08)
[2022-01-04] MEDS: Ondansetron 8 MG Tablet PO ×3 (03:31→20:09)
[2022-01-04 03:34] VITALS: BP 115/71; PULSE 85; RESP 16; TEMP 36.4; O2SAT 96
[2022-01-04 07:33] VITALS: O2SAT 93
[2022-01-04] MEDS: Folic Acid 1 MG Tablet PO (08:54)
[2022-01-04] MEDS: Thiamine Hydrochloride 100 MG Tablet PO (08:54)
[2022-01-04 09:00] VITALS: BP 98/64; PULSE 73; RESP 18; TEMP 36.5; O2SAT 97
--- NOTE | 2022-01-04 09:45 | PN.HOSP_ITS ---
Subjective Subjective Patient seen and examined. He had no active complaints and had an uneventful night. REview of systems is otherwise negative. Objective Data Objective Data Vital Signs: Vital Signs Temp Pulse Resp BP Pulse Ox 97.7 F L 73 18 98/64 97 01/04/22 09:00 01/04/22 09:00 01/04/22 09:00 01/04/22 09:00 01/04/22 09:00 Oxygen Delivery Method Room Air Weight: 215 lb 7.994 oz Body Mass Index (BMI) 27.6 Intake & Output: Intake and Output for Last 24 Hours 01/02/22 01/03/22 01/04/22 23:59 23:59 23:59 Intake Total 500 / 500 1120 / 1120 Output Total 0 / 0 Balance 500 / 500 1120 / 1120 Physical Exam Const alert, oriented x3 and no apparent distress Exam Limitations: no limitations HEENT head/scalp atraumatic, moist oral mucous membranes and oropharynx normal Head and Scalp: normocephalic Eyes PERRL, EOMs intact bilaterally and conjunctivae normal Neck no lymphadenopathy, supple and no JVD Resp normal respiratory effort, no retractions, no use of accessory muscles and clear to auscultation bilaterally Cardio regular rate, regular rhythm, S1 normal heart sound, S2 normal heart sound and no murmurs GI normal to inspection, nondistended, normoactive bowel sounds Extremity normal to inspection, full ROM and no clubbing, cyanosis or edema Peripheral Pulses: Yes pulses 2+ throughout Skin no rashes or lesions noted Neuro oriented x3, CN's II-XII intact bilaterally and moves all extremities Sensorium / Orientation: awake and alert Psych affect normal Assessment & Plan Assessment/Plan (1) Opiate abuse, continuous: (2) Alcohol abuse: (3) Benzodiazepine abuse: PLAN: #Acute opioid withdrawal * on benzodiazepine withdrawal with buprenorphine * monitor CINA score * on adjunctive meds for symptomatic relief * #Alcohol and benzodiazepine abuse * on phenobarbital withdrawal protocol * on thiamine, folic acid and multivite * adjunctive meds for symptomatic relief * #nicotine dependence * counseled to quit * nicotine patch 21mg daily * #History of asthma: stable. Breathing treatment with bronchodilators DVT prophylaxis: low risk, encouraged to ambulate Disposition: for DC to rehab facility tomorrow Charges/Coding Visit Charges Inpatient E&M: 62861 Subs Hosp L2
[2022-01-04 15:00] VITALS: BP 123/83; PULSE 88; RESP 18; TEMP 36.6; O2SAT 95
[2022-01-04 20:00] VITALS: BP 117/80; PULSE 81; RESP 20; TEMP 36.7; O2SAT 98; O2SAT 99
[2022-01-04] MEDS: traZODone 100 MG Tablet PO (21:41)
[2022-01-05 02:00] VITALS: BP 97/61; PULSE 66; RESP 20; TEMP 36.7; O2SAT 96
[2022-01-05] MEDS: Buprenorphine HCl 2 MG TAB.SUBL SL ×2 (02:09→10:49)
[2022-01-05] MEDS: Phenobarbital 32.4 MG Tablet 64.8 MG PO ×2 (03:33→08:52)
[2022-01-05 05:26] VITALS: BP 104/76; PULSE 64; RESP 20; TEMP 35.6; O2SAT 99
[2022-01-05 08:50] VITALS: BP 102/66; PULSE 76; RESP 18; TEMP 36.7; O2SAT 94
[2022-01-05] MEDS: Folic Acid 1 MG Tablet PO (08:53)
[2022-01-05] MEDS: Thiamine Hydrochloride 100 MG Tablet PO (08:53)
--- NOTE | 2022-01-05 09:59 | DS.PCM_ITS ---
Providers Date of Admission: 01/02/22 Primary Care Physician: Dr. Luly Montiel MD Reason For Visit: DESIRE FOR ALCOHOL AND OPIATE DETOX Diagnosis Discharge Diagnosis (1) Opiate abuse, continuous: Status: Chronic Code(s): F11.10 - Opioid abuse, uncomplicated (2) Alcohol abuse: Status: Chronic Code(s): F10.10 - Alcohol abuse, uncomplicated (3) Benzodiazepine abuse: Status: Acute Code(s): F13.10 - Sedative, hypnotic or anxiolytic abuse, uncomplicated Hospital Course Operations None Procedures None Summary of Care Provided Minutes Spent on Discharge: 45 Hospital Course: Patient is a 31-year-old male with extensive past medical h istory as outlined including polysubstance abuse who was admitted through the ED on 01/02/2022 for acute detox. Patient used IV fentanyl and heroin and also use Xanax. Patient also had a history of alcohol abuse. He was admitted and managed for acute opioid and benzodiazepine as well as alcohol withdrawal. He was started on alcohol withdrawal protocol with phenobarbital which was also taking a benzodiazepine withdrawal protocol and was also treated with buprenorphine for opiate withdrawal protocol. He completed the 3 day detox process and did well. He opted for an inpatient rehab and so was discharged to an inpatient rehab facility on 01/05/2022. Patient seen and examined prior to discharge. He had no active complaints and had an uneventful night. REview of systems was otherwise negative. Home medication reviewed and reconciled. Physical Exam Const alert, oriented x3 and no apparent distress General Appearance: cooperative and comfortable Exam Limitations: no limitations HEENT normocephalic, head/scalp atraumatic, hearing grossly normal bilaterally, moist oral mucous membranes and oropharynx normal Eyes PERRL, EOMs intact bilaterally and conjunctivae normal Neck no lymphadenopathy, supple and no JVD Resp normal respiratory effort, no retractions, no use of accessory muscles and clear to auscultation bilaterally Cardio regular rate, regular rhythm, S1 normal heart sound, S2 normal heart sound and no murmurs GI normal to inspection, nondistended, normoactive bowel sounds Extremity normal to inspection, full ROM and no clubbing, cyanosis or edema Skin no rashes or lesions noted Neuro oriented x3, CN's II-XII intact bilaterally and moves all extremities Sensorium / Orientation: awake and alert Psych affect normal Weight / BMI Weight Weight: 215 lb 7.994 oz Body Mass Index (BMI) 27.6 D/C Instructions Discharge Diet: No restrictions Discharge Activity: Return to Normal Activity Weight Bearing Status: Weight bearing as tolerated Call your doctor if you observe: Fever of 101 or Higher, Shortness of breath, Dizziness, Swelling in the ankles and Chest pain Meaningful Use Info Meaningful Use Diagnoses (Choose all that apply): None applicable Discharge Plan Admission Admit Date/Time: 01/02/22 05:59 Primary Reason for Your Visit: acute opioid, alcohol and benzodiazepine withdrawal Attending Provider: Jordyn Hutiron Primary Care Provider: Luly Montiel Consulting Providers: Javier Reaves Instructions Patient Instructions: ED Withdrawal Alcohol, ED Opioid Withdrawal, ED Benzodiazepine Withdrawal Discharge Orders/Prescriptions Referrals / Follow Up: Luly Montiel MD [Primary Care Provider] - Within 2 Weeks Disposition Disposition (needs filled in before D/C Order can be placed): Inpatient Rehab Unit/Facility Charges/Coding Visit Charges Inpatient E&M: 29429 Disch Hosp
[2022-01-05 10:39] VITALS: BP 102/66; PULSE 76; RESP 18; TEMP 36.7; O2SAT 94
== END 2022-01-05 12:56 | disposition home or self-care (01) | DRG 773 ==
LOC: ED 06:03 → PCU 06:15
PROVIDERS: Admitting Provider Hospitalist; Emergency Provider Emergency Medicine; PCP Internal Medicine; Visit Provider Student in an Organized Health Care Education/Training Program
DX: F11.23 Opioid dependence with withdrawal (principal); F10.10 Alcohol abuse, uncomplicated; F13.10 Sedative, hypnotic or anxiolytic abuse, uncomplicated; F17.210 Nicotine dependence, cigarettes, uncomplicated; I10 Essential (primary) hypertension; J45.909 Unspecified asthma, uncomplicated; Z59.00 Homelessness unspecified
CPT/HCPCS: 99283

== ENCOUNTER 2023-03-02 15:16 | Inpatient (IN) | payer MEDICAID, SELFPAY ==
[2023-03-02 15:18] VITALS: BP 145/87; PULSE 79; RESP 20; TEMP 36.1; O2SAT 98; BMI 30.1
--- NOTE | 2023-03-02 16:39 | EX.ED.SAOD ---
HPI <BENNIE Rodriguez - Last Filed: 03/02/23 19:40> History of Present Illness Chief Complaint: Substance Abuse Narrative Narrative: Patient presenting today requesting to detox from fentanyl and benzodiazepines. He reports that he uses about a gram of fentanyl daily and primarily injects it. He also uses a few Klonopin daily. He has been using for the past 10 years but did have a brief period of time where he was sober up until few months ago. He has detoxed in the past. He reports drinking about 2 tall boy beers daily but denies history of withdrawal seizure. Occasionally uses meth and cocaine. He reports that he feels shaky, nauseous, and restless. He last used this morning. PMH includes asthma. PFSH <BENNIE Rodriguez - Last Filed: 03/02/23 19:40> [facility] Medical History Alcohol abuse Alcohol abuse Alcohol abuse Anxiety Asthma Benzodiazepine abuse Chest pain Chronic bronchitis Chronic neck and back pain Cocaine abuse Depression Hepatitis C Heroin abuse Hypertension Irregular heart beat Opiate abuse, continuous Opiate abuse, continuous Seasonal allergies Smoker Tobacco abuse Home Medications albuterol sulfate 90 mcg/actuation aerosol inhaler (Ventolin HFA) inhalation Q4H PRN asthma 03/02/23 [History Last Taken 03/01/23] amlodipine 10 mg tablet mg PO DAILY BP 03/02/23 [History Last Taken Unknown] buprenorphine 300 mg/1.5 mL solution,exten.rel.subcutaneous syringe (Sublocade) mg subcut no longer takes 03/02/23 [History Last Taken Unknown] bupropion HCl 300 mg 24 hr tablet, extended release mg PO DAILY anxiety/depression 03/02/23 [History Last Taken 03/01/23] gabapentin 600 mg tablet mg PO TID pain 03/02/23 [History Last Taken 03/01/23] loratadine 10 mg tablet mg no longer takes 03/02/23 [History Last Taken Unknown] multivitamin with folic acid 400 mcg tablet (Daily-[place] (with folic acid)) tab PO DAILY supplement 03/02/23 [History Last Taken 03/01/23] trazodone 50 mg tablet mg PO DAILY PRN sleep 03/02/23 [History Last Taken 03/01/23] Allergy/AdvReac Type Severity Reaction Status Date / Time No Known Allergies Allergy Verified 03/02/23 15:17 Family History Father Diabetes Hypertension Grandfather Diabetes Heart disease Hypertension Uncle Diabetes Surgical History History of appendectomy History of hand surgery History of spinal surgery Social History housing: homeless Smoking Status: Current every day smoker tobacco type: cigarettes alcohol intake: current alcohol intake frequency: 3 or more drinks per day details: Starting drinking again 11/04/21, 3 tall boys daily. substance use type: crack/cocaine and heroin what type of physical activity do you participate in: weight training frequency: 5-6 times per week ROS <BENNIE Rodriguez - Last Filed: 03/02/23 19:40> ROS ED Constitutional Constitutional ED: Denies chills or fever(s) Cardiovascular Cardiovascular: Denies chest pain or palpitations Respiratory/Chest Respiratory/Chest: Denies cough or dyspnea Gastrointestinal Gastrointestinal: Denies abdominal pain, nausea or vomiting Genitourinary Genitourinary ED: Denies dysuria, hematuria or urinary urgency Musculoskeletal Musculoskeletal: Denies arthralgias or myalgias Integumentary Denies abscess, Abrasions or rash Neurologic Neurologic: Denies weakness Psychiatric Psychiatric: Denies anxiety, depression, suicidal ideation or suicidal thoughts EXAM <BENNIE Rodriguez - Last Filed: 03/02/23 19:40> Physical Exam Const Vital Signs: 03/02/23 15:18 Temperature 97 F L Temperature Source Temporal Pulse Rate 79 Respiratory Rate 20 H Blood Pressure 145/87 H Blood Pressure Mean 106 Pulse Ox 98 Oxygen Delivery Method Room Air Positive well nourished, well developed and no apparent distress General Appearance ED: well developed HEENT Reports normocephalic and head/scalp atraumatic Mouth ED: Yes moist mucous membranes normal Eyes PERRL and EOMs intact bilaterally Neck full ROM and supple Chest Wall inspection of chest normal Resp normal respiratory effort and clear to auscultation bilaterally Cardio regular rate and regular rhythm GI soft to palpation, non-tender, non-distended and no masses Back/Spine normal ROM and normal to inspection Extremity normal to inspection and full ROM Neuro oriented x3, CN's II-XII intact bilaterally, moves all extremities, no focal motor deficits and no sensory deficits noted Sensorium / Orientation: awake and alert Psych mental status grossly normal and thought process normal Skin no rashes or lesions noted and no wounds <Dr. Tesha Graff DO - Last Filed: 03/02/23 23:14> Physical Exam Const Vital Signs: 03/02/23 15:18 Temperature 97 F L Temperature Source Temporal Pulse Rate 79 Respiratory Rate 20 H Blood Pressure 145/87 H Blood Pressure Mean 106 Pulse Ox 98 Oxygen Delivery Method Room Air MDM <BENNIE Rodriguez - Last Filed: 03/02/23 19:40> [facility] MDM Narrative Medical decision making narrative: Patient presenting requesting detox from fentanyl, Klonopin, meth, COVID, and alcohol. He has never had a withdrawal seizure from alcohol. He is well-appearing and in no acute distress. He reports that he is nauseous and feels shaky and restless. I will discuss patient with the hospitalist for admission. Patient will be admitted in stable condition and is comfortable with plan. Lab Data Attestation: I reviewed the patient's lab results. Labs: Laboratory Results - last 24 hr 03/02/23 03/02/23 16:26 16:44 WBC 9.8 RBC 4.63 Hgb 13.0 Hct 40.9 MCV 88.3 MCH 28.1 MCHC 31.8 L RDW Std Deviation 42.5 RDW Coeff of Fredo 13.2 Plt Count 146 L MPV 9.2 Immature Gran % (Auto) 0.500 Neut % (Auto) 75.3 H Lymph % (Auto) 14.7 L [place] % (Auto) 7.0 Eos % (Auto) 1.8 Baso % (Auto) 0.7 Absolute Neuts (auto) 7.4 Absolute Lymphs (auto) 1.44 Nucleated RBC % 0 Sodium 143 Potassium 3.4 L Chloride 109 H Carbon Dioxide 30.0 Anion Gap 4 L BUN 14 Creatinine 0.90 Estim Creat Clear Calc 134.46 Est GFR (MDRD) Af Amer 125 Est GFR (MDRD) Non-Af 103 BUN/Creatinine Ratio 15.6 Glucose 111 H Calcium 8.4 L Total Bilirubin 0.30 Direct Bilirubin 0.11 AST 22 ALT 38 Alkaline Phosphatase 134 H Total Protein 7.0 Albumin 3.0 L Globulin 4.0 Urine Opiates Screen POSITIVE H Urine Methadone Screen NEGATIVE Ur Barbiturates Screen NEGATIVE Ur Phencyclidine Scrn NEGATIVE Ur Amphetamines Screen POSITIVE H MDMA (Ecstasy) Screen POSITIVE H U Benzodiazepines Scrn NEGATIVE Urine Cocaine Screen POSITIVE H U Cannabinoids Screen NEGATIVE Ur Drug Screen Comment Ethyl Alcohol < 3.0 <Dr. Tesha Graff, DO - Last Filed: 03/02/23 23:14> MDM MDM Narrative Medical decision making narrative: Patient presenting requesting detox from fentanyl, Klonopin, meth, COVID, and alcohol. He has never had a withdrawal seizure from alcohol. He is well-appearing and in no acute distress. He reports that he is nauseous and feels shaky and restless. I will discuss patient with the hospitalist for admission. Patient will be admitted in stable condition and is comfortable with plan. I have personally performed a face to face assessment of the patient and have reviewed the AUDREY Note. I performed a substantive portion of the visit including all aspects of the following. My jara findings include: History is patient is a 32-year-old male with history of polysubstance abuse notably Klonopin and fentanyl presenting for request of detox. Patient does feel like he is actively withdrawing from fentanyl. Is given Zofran as well as phenobarb in the emergency room. He is mildly hypertensive upon arrival which could be consistent with benzodiazepine withdrawal. Will be admitted to a rehab program for inpatient detox. Patient agreeable with this. Other additions or changes: [None] Lab Data Labs: Laboratory Results - last 24 hr 03/02/23 03/02/23 16:26 16:44 WBC 9.8 RBC 4.63 Hgb 13.0 Hct 40.9 MCV 88.3 MCH 28.1 MCHC 31.8 L RDW Std Deviation 42.5 RDW Coeff of Fredo 13.2 Plt Count 146 L MPV 9.2 Immature Gran % (Auto) 0.500 Neut % (Auto) 75.3 H Lymph % (Auto) 14.7 L [place] % (Auto) 7.0 Eos % (Auto) 1.8 Baso % (Auto) 0.7 Absolute Neuts (auto) 7.4 Absolute Lymphs (auto) 1.44 Nucleated RBC % 0 Sodium 143 Potassium 3.4 L Chloride 109 H Carbon Dioxide 30.0 Anion Gap 4 L BUN 14 Creatinine 0.90 Estim Creat Clear Calc 134.46 Est GFR (MDRD) Af Amer 125 Est GFR (MDRD) Non-Af 103 BUN/Creatinine Ratio 15.6 Glucose 111 H Calcium 8.4 L Total Bilirubin 0.30 Direct Bilirubin 0.11 AST 22 ALT 38 Alkaline Phosphatase 134 H Total Protein 7.0 Albumin 3.0 L Globulin 4.0 Urine Opiates Screen POSITIVE H Urine Methadone Screen NEGATIVE Ur Barbiturates Screen NEGATIVE Ur Phencyclidine Scrn NEGATIVE Ur Amphetamines Screen POSITIVE H MDMA (Ecstasy) Screen POSITIVE H U Benzodiazepines Scrn NEGATIVE Urine Cocaine Screen POSITIVE H U Cannabinoids Screen NEGATIVE Ur Drug Screen Comment Ethyl Alcohol < 3.0 Discharge Plan Dx/Rx/DC Orders Clinical Impression: Desire for detoxification, Polysubstance abuse, Nausea Disposition Disposition: Acute Care Hospital [facility] Discharge Date/Time: 03/02/23 18:56
[2023-03-02 16:59] LABS: Absolute Lymphocyte Count 1.44 X10^3/uL (0.83-4.51); Absolute Neutrophil Count 7.4 X10^3/uL (2.0-7.7); Basophil# 0.07 X10^3/uL; Basophil% 0.7 % (0-1); Eosinophil# 0.18 X10^3/uL; Eosinophils% 1.8 % (0-5); Hematocrit 40.9 % (40-54); Lymphocyte # 1.44 X10^3/ul (0.83-4.51); Lymphocyte % 14.7 % (19-41); Mean Corp Hgb Conc 31.8 g/dL (32-36); Mean Corpuscular Hgb 28.1 pg (27.0-32.0); Mean Corpuscular Volume 88.3 fL (80-94); Mean Platelet Vol. 9.2 fl (6.2-12.0); Monocyte# 0.69 X10^3/uL; NRBC Flagged by Analyzer 0 % (0-5); Neutrophil # 7.36 X10^3/uL (2.7-7.7); Neutrophil % 75.3 % (47-70); Platelet Count 146 K/mm3 (150-450); RBC Distribution Width CV 13.2 % (11.6-14.6); RBC Distribution Width SD 42.5 fl (35.1-43.9); Red Blood Count 4.63 M/mm3 (4.6-6.2); White Blood Count 9.8 K/mm3 (4.4-11.0)
[2023-03-02] MEDS: Ondansetron ODT 4 MG Tablet PO (17:06)
[2023-03-02] MEDS: Phenobarbital 32.4 MG Tablet 97.2 MG PO (17:06)
[2023-03-02 17:09] LABS: AST(SGOT) 22 U/L (15-37); Alanine Aminotransfer ALT/SGPT 38 U/L (16-61); Alkaline Phosphatase 134 U/L (45-117); Anion Gap 4 (5-15); BUN 14 mg/dL (7-18); BUN/Creat Ratio 15.6 RATIO (10-20); Bilirubin, Direct 0.11 mg/dL (0.00-0.30); Calcium,Total 8.4 mg/dL (8.5-10.1); Chloride 109 mmol/L (98-107); EST Glomerular Filtration Rate 103 mL/min (>60); Est Glom Filt Rate - Afr Amer 125 mL/min (>60); Estimated Creatinine Clearance 134.46 ml/min; Glucose 111 mg/dL (74-106); Potassium 3.4 mmol/L (3.5-5.1); Sodium Level 143 mmol/L (136-145)
[2023-03-02 17:11] LABS: Amphetamine Urine VISTA POSITIVE (<1000 ng/mL); Barbiturate Urine VISTA NEGATIVE (< 200 ng/mL); Benzodiazepine Urine VISTA NEGATIVE (< 200 ng/mL); Cocaine Urine VISTA POSITIVE (< 300 ng/mL); Ecstacy Urine VISTA POSITIVE (< 500 ng/mL); Methadone Urine VISTA NEGATIVE (< 300 ng/mL); PCP Urine VISTA NEGATIVE (< 25 ng/mL); THC Urine VISTA NEGATIVE (< 50 ng/mL); Vista UDS pH Range 6
[2023-03-02 17:14] LABS: Alcohol, Blood (Medical)-Serum < 3.0 mg/dL
--- NOTE | 2023-03-02 18:14 | PCM.HP.STD ---
[facility] - General General Date of Admission: 03/02/23 Date of Service: 03/02/23 Chief Complaint: fentanyl and benzodiazepine detox HPI Narrative KACIE JACKSON, is a 32 M with a past medical history as outlined who presents via the ED on 03/02/2023 for detox from fentanyl and benzodiazepines. Patient uses fentanyl usually uses his IV and occasionally uses Klonopin as well. Patient has been using for at least 10 years since he was sober for some time until a few months ago when he relapsed. He also drinks alcohol and drinks about 2 tall boys of beer daily. She had withdrawal seizures. He also occasionally uses methamphetamine and cocaine. Patient admitted to shakes and tremors but denied any chills or abdominal cramps. His last use was on the morning of admission. Review of systems otherwise negative. Vitals in the ED where blood pressure of 145/87, pulse of 79 respiratory rate of 20 with temperature of 97 Fahrenheit. He was saturating at 98% on room air. CBC was largely unremarkable apart from platelets of 146. CMP was significant for potassium of 3.4. Urine tox was positive for opiates, amphetamines and MDMA as well as cocaine. Serum alcohol level was less than 3. He has been admitted to be managed for acute fentanyl, benzodiazepine and alcohol withdrawal. [facility] Medical History Alcohol abuse Alcohol abuse Alcohol abuse Anxiety Asthma Benzodiazepine abuse Chest pain Chronic bronchitis Chronic neck and back pain Cocaine abuse Depression Hepatitis C Heroin abuse Hypertension Irregular heart beat Opiate abuse, continuous Opiate abuse, continuous Seasonal allergies Smoker Tobacco abuse Allergy/AdvReac Type Severity Reaction Status Date / Time No Known Allergies Allergy Verified 03/02/23 15:17 Family History Father Diabetes Hypertension Grandfather Diabetes Heart disease Hypertension Uncle Diabetes Surgical History History of appendectomy History of hand surgery History of spinal surgery Social History housing: homeless Smoking Status: Current every day smoker tobacco type: cigarettes alcohol intake: current alcohol intake frequency: 3 or more drinks per day details: Starting drinking again 11/04/21, 3 tall boys daily. substance use type: crack/cocaine and heroin what type of physical activity do you participate in: weight training frequency: 5-6 times per week ROS Constitutional Constitutional: Reports fatigue and malaise; Denies anorexia, chills, fever(s) or weakness Eyes Eyes: Denies change in vision ENT HEENT: Denies dysphagia, headache(s) or throat swelling Cardiovascular Cardiovascular: Denies chest pain, edema, palpitations or paroxysmal nocturnal dyspnea Respiratory/Chest Respiratory/Chest: Denies cough, shortness of breath at rest or shortness of breath with exertion Gastrointestinal Gastrointestinal: Denies abdominal pain, diarrhea, nausea or vomiting Genitourinary Genitourinary: Denies dysuria or hematuria Neurologic Neurologic: Denies dizziness, focal weakness, headache(s) or seizures Psychiatric Psychiatric: Denies anxiety or depression Vital Signs Vital Signs Vital Signs: 03/02/23 15:18 Temperature 97 F L Temperature Source Temporal Pulse Rate 79 Respiratory Rate 20 H Blood Pressure 145/87 H Blood Pressure Mean 106 Pulse Ox 98 Oxygen Delivery Method Room Air Weight Weight: 234 lb 6.4 oz Body Mass Index (BMI) 30.1 Physical Exam Const alert, oriented x3 and no apparent distress HEENT normocephalic, head/scalp atraumatic, moist oral mucous membranes and oropharynx normal Eyes PERRL and EOMs intact bilaterally Neck no lymphadenopathy, supple and no JVD Lymph Lymphatic: no lymphadenopathy noted and no lymphedema noted Resp normal respiratory effort, normal air movement and clear to auscultation bilaterally Cardio regular rate, regular rhythm, S1 normal heart sound, S2 normal heart sound and no murmurs GI normal to inspection, nondistended, normoactive bowel sounds, soft to palpation, non-tender and non-distended Extremity normal capillary refill, no clubbing, cyanosis or edema and no calf tenderness Skin General Skin Exam: no breakdown Neuro CN's II-XII intact bilaterally, no focal motor deficits, no sensory deficits noted and deep tendon reflexes 2+ bilaterally Motor Exam: strength 5/5 throughout Psych thought process normal and cooperative Appearance: appropriate Results Lab / Micro Data 03/02/23 16:44 03/02/23 16:44 Labs: Laboratory Results - last 24 hr 03/02/23 16:26: Urine Opiates Screen POSITIVE H, Urine Methadone Screen NEGATIVE, Ur Barbiturates Screen NEGATIVE, Ur Phencyclidine Scrn NEGATIVE, Ur Amphetamines Screen POSITIVE H, MDMA (Ecstasy) Screen POSITIVE H, U Benzodiazepines Scrn NEGATIVE, Urine Cocaine Screen POSITIVE H, U Cannabinoids Screen NEGATIVE, Ur Drug Screen Comment 03/02/23 16:44: WBC 9.8, RBC 4.63, Hgb 13.0, Hct 40.9, MCV 88.3, MCH 28.1, MCHC 31.8 L, RDW Std Deviation 42.5, RDW Coeff of Fredo 13.2, Plt Count 146 L, MPV 9.2, Immature Gran % (Auto) 0.500, Neut % (Auto) 75.3 H, Lymph % (Auto) 14.7 L, [place] % (Auto) 7.0, Eos % (Auto) 1.8, Baso % (Auto) 0.7, Absolute Neuts (auto) 7.4, Absolute Lymphs (auto) 1.44, Nucleated RBC % 0, Sodium 143, Potassium 3.4 L, Chloride 109 H, Carbon Dioxide 30.0, Anion Gap 4 L, BUN 14, Creatinine 0.90, Estim Creat Clear Calc 134.46, Est GFR (MDRD) Af Amer 125, Est GFR (MDRD) Non-Af 103, BUN/Creatinine Ratio 15.6, Glucose 111 H, Calcium 8.4 L, Total Bilirubin 0.30, Direct Bilirubin 0.11, AST 22, ALT 38, Alkaline Phosphatase 134 H, Total Protein 7.0, Albumin 3.0 L, Globulin 4.0, Ethyl Alcohol < 3.0 Assessment & Plan Assessment/Plan (1) Opioid abuse with withdrawal: PLAN: Plan #Acute opioid withdrawal Admit to [facility] uses fentanyl usually IV. Urine tox positive for opiates, amphetamines, MDMA and cocaine. Started on opioid withdrawal protocol with buprenorphine. Adjunctive meds for symptomatic relief. #Acute alcohol and benzodiazepine withdrawal Also dependent on alcohol and benzodiazepines. Uses Klonopin. Started on alcohol and benzodiazepine withdrawal with phenobarbital. Thiamine, folic acid and Multivite's. Adjunctive meds for symptomatic relief. #History of asthma: Not in acute exacerbation. Breathing treatments bronchodilators DVT prophylaxis: Low risk. Encouraged to ambulate Charges/Coding Visit Charges Inpatient E&M: 74959 Init Hosp L3
--- NOTE | 2023-03-02 18:43 | CM.ED ---
Social Work SW introduced self and role to patient. Pt's last use this morning and report polysubstance abuse. Pt injects fentanyl, drinks daily, and uses benzos, cocaine, and meth. Pt reports he has been through detox in the past. Pt denies any questions or concerns. SW to notifiy on-call treatment navigator. Vibha Jones
[2023-03-02 18:52] VITALS: BP 135/71; PULSE 99; RESP 14; TEMP 36.6; O2SAT 97
[2023-03-02 19:19] VITALS: BMI 30.4
[2023-03-02 19:51] VITALS: BP 121/69; PULSE 67; RESP 16; TEMP 36.4; O2SAT 93
[2023-03-02] MEDS: Phenobarbital 32.4 MG Tablet PO (20:32)
[2023-03-03] VITALS (7 sets, daily range): BP systolic 123–135; BP diastolic 66–89; PULSE 60–79; RESP 16–18; TEMP 36.2–36.9; O2SAT 95–100
[2023-03-03] MEDS: Phenobarbital 32.4 MG Tablet PO ×6 (01:25→21:07)
[2023-03-03] MEDS: Folic Acid 1 MG Tablet PO (08:07)
[2023-03-03] MEDS: Thiamine Hydrochloride 100 MG Tablet PO (08:07)
[2023-03-03] MEDS: Dicyclomine 10 MG Capsule 20 MG PO (10:34)
[2023-03-03] MEDS: Loperamide 2 MG Capsule PO (10:34)
--- NOTE | 2023-03-03 11:16 | PN_ITS ---
Subjective Subjective Patient seen and examined. He was resting and had no active complaints. He had an uneventful night. Review of systems is otherwise negative. He has remained hemodynamically stable. Objective Data Objective Data Vital Signs: Vital Signs Temp Pulse Resp BP Pulse Ox O2 Del Method 97.8 F 68 16 123/75 H 99 Room Air 03/03/23 10:00 03/03/23 10:00 03/03/23 10:00 03/03/23 10:00 03/03/23 10:00 03/03/23 10:00 Oxygen Delivery Method Room Air Weight: 236 lb 15.951 oz Body Mass Index (BMI) 30.4 Intake & Output: Intake and Output for Last 24 Hours 03/01/23 03/02/23 03/03/23 23:59 23:59 23:59 Intake Total 400 / 400 Balance 400 / 400 Lab / Micro Data 03/02/23 16:44 03/02/23 16:44 Labs: Laboratory Results - last 24 hr 03/02/23 16:26: Urine Opiates Screen POSITIVE H, Urine Methadone Screen NEGATIVE, Ur Barbiturates Screen NEGATIVE, Ur Phencyclidine Scrn NEGATIVE, Ur Amphetamines Screen POSITIVE H, MDMA (Ecstasy) Screen POSITIVE H, U Benzodiazepines Scrn NEGATIVE, Urine Cocaine Screen POSITIVE H, U Cannabinoids Screen NEGATIVE, Ur Drug Screen Comment 03/02/23 16:44: WBC 9.8, RBC 4.63, Hgb 13.0, Hct 40.9, MCV 88.3, MCH 28.1, MCHC 31.8 L, RDW Std Deviation 42.5, RDW Coeff of Fredo 13.2, Plt Count 146 L, MPV 9.2, Immature Gran % (Auto) 0.500, Neut % (Auto) 75.3 H, Lymph % (Auto) 14.7 L, [place] % (Auto) 7.0, Eos % (Auto) 1.8, Baso % (Auto) 0.7, Absolute Neuts (auto) 7.4, Absolute Lymphs (auto) 1.44, Nucleated RBC % 0, Sodium 143, Potassium 3.4 L, Chloride 109 H, Carbon Dioxide 30.0, Anion Gap 4 L, BUN 14, Creatinine 0.90, Estim Creat Clear Calc 134.46, Est GFR (MDRD) Af Amer 125, Est GFR (MDRD) Non-Af 103, BUN/Creatinine Ratio 15.6, Glucose 111 H, Calcium 8.4 L, Total Bilirubin 0.30, Direct Bilirubin 0.11, AST 22, ALT 38, Alkaline Phosphatase 134 H, Total Protein 7.0, Albumin 3.0 L, Globulin 4.0, Ethyl Alcohol < 3.0 Physical Exam Const alert, oriented x3 and no apparent distress General Appearance: cooperative HEENT normocephalic, head/scalp atraumatic, moist oral mucous membranes and oropharynx normal Eyes PERRL and EOMs intact bilaterally Neck no lymphadenopathy, supple and no JVD Lymph Lymphatic: no lymphadenopathy noted and no lymphedema noted Resp normal respiratory effort, normal air movement and clear to auscultation bilaterally Cardio regular rate, regular rhythm, S1 normal heart sound, S2 normal heart sound and no murmurs GI normal to inspection, nondistended, normoactive bowel sounds, soft to palpation, non-tender and non-distended Extremity normal capillary refill, no clubbing, cyanosis or edema and no calf tenderness Skin General Skin Exam: no breakdown Neuro CN's II-XII intact bilaterally, no focal motor deficits, no sensory deficits noted and deep tendon reflexes 2+ bilaterally Motor Exam: strength 5/5 throughout Psych thought process normal and cooperative Appearance: appropriate Assessment & Plan Assessment/Plan (1) Opioid abuse with withdrawal: PLAN: Plan #Acute opioid withdrawal * Urine tox positive for opiates, amphetamines, MDMA and cocaine. * on opioid withdrawal protocol with buprenorphine. * adjunctive meds for symptomatic relief * #Acute alcohol and benzodiazepine withdrawal * Also dependent on alcohol and benzodiazepines. Uses Klonopin. * on alcohol and benzodiazepine withdrawal with phenobarbital. * Thiamine, folic acid and Multivites * Adjunctive meds for symptomatic relief. * #History of asthma: Not in acute exacerbation. Breathing treatments with bronchodilators DVT prophylaxis: Low risk. Encouraged to ambulate * Charges/Coding Visit Charges Inpatient E&M: 07025 Subs Hosp L2
[2023-03-03] MEDS: Methocarbamol 750 MG Tablet 1500 MG PO (21:15)
[2023-03-04] VITALS (7 sets, daily range): BP systolic 115–137; BP diastolic 69–88; PULSE 63–84; RESP 16–18; TEMP 36.4–36.9; O2SAT 95–100
[2023-03-04] MEDS: Phenobarbital 32.4 MG Tablet PO ×6 (00:32→20:51)
[2023-03-04] MEDS: cloNIDine HCl 0.1 MG Tablet PO ×2 (00:39→10:09)
[2023-03-04] MEDS: Methocarbamol 750 MG Tablet 1500 MG PO ×2 (05:06→20:51)
[2023-03-04] MEDS: Gabapentin 300 MG Capsule PO ×2 (05:06→18:39)
--- NOTE | 2023-03-04 09:18 | PN_ITS ---
Subjective Subjective Patient seen and examined. He complained of tremors, abdominal cramps and increased sweating. He had no other complaints. Review of systems is otherwise negative. He has now started receiving subutex since his CINA score is high enough now to get it. Objective Data Objective Data Vital Signs: Vital Signs Temp Pulse Resp BP Pulse Ox O2 Del Method 98.1 F 65 16 126/75 H 97 Room Air 03/04/23 08:06 03/04/23 08:06 03/04/23 08:06 03/04/23 08:06 03/04/23 08:06 03/04/23 08:06 Oxygen Delivery Method Room Air Weight: 236 lb 15.951 oz Body Mass Index (BMI) 30.4 Intake & Output: Intake and Output for Last 24 Hours 03/02/23 03/03/23 03/04/23 23:59 23:59 23:59 Intake Total 900 / 1100 300 / 300 Balance 900 / 1100 300 / 300 Lab / Micro Data 03/02/23 16:44 03/02/23 16:44 Physical Exam Const alert, oriented x3 and no apparent distress General Appearance: cooperative HEENT normocephalic, head/scalp atraumatic, moist oral mucous membranes and oropharynx normal Eyes PERRL and EOMs intact bilaterally Neck no lymphadenopathy, supple and no JVD Lymph Lymphatic: no lymphadenopathy noted and no lymphedema noted Resp normal respiratory effort, normal air movement and clear to auscultation laurent aterally Cardio regular rate, regular rhythm, S1 normal heart sound, S2 normal heart sound and no murmurs GI normal to inspection, nondistended, normoactive bowel sounds, soft to palpation, non-tender and non-distended Extremity normal capillary refill, no clubbing, cyanosis or edema and no calf tenderness Skin General Skin Exam: no breakdown Neuro CN's II-XII intact bilaterally, no focal motor deficits, no sensory deficits noted and deep tendon reflexes 2+ bilaterally Motor Exam: strength 5/5 throughout Psych thought process normal and cooperative Appearance: appropriate Assessment & Plan Assessment/Plan (1) Opioid abuse with withdrawal: PLAN: Plan #Acute opioid withdrawal * Urine tox positive for opiates, amphetamines, MDMA and cocaine. * on opioid withdrawal protocol with buprenorphine. * adjunctive meds for symptomatic relief * #Acute alcohol and benzodiazepine withdrawal * Also dependent on alcohol and benzodiazepines. Uses Klonopin. * on alcohol and benzodiazepine withdrawal with phenobarbital. * Thiamine, folic acid and Multivites * Adjunctive meds for symptomatic relief. * #History of asthma: Not in acute exacerbation. Breathing treatments with bronchodilators DVT prophylaxis: Low risk. Encouraged to ambulate * Charges/Coding Visit Charges Inpatient E&M: 30562 Subs Hosp L2
[2023-03-04] MEDS: Thiamine Hydrochloride 100 MG Tablet PO (10:09)
[2023-03-04] MEDS: Folic Acid 1 MG Tablet PO (10:09)
[2023-03-04] MEDS: Buprenorphine HCl 2 MG TAB.SUBL SL ×2 (10:10→17:27)
--- NOTE | 2023-03-04 12:28 | NURSING ---
This RN is aware of shift assessment and all of 1000 interventions charted by Zev Gonsalez RN on this pt.
[2023-03-04] MEDS: traZODone 100 MG Tablet PO (20:51)
[2023-03-04] MEDS: Dicyclomine 10 MG Capsule 20 MG PO (20:51)
[2023-03-05] MEDS: Phenobarbital 32.4 MG Tablet PO ×5 (00:48→23:02)
[2023-03-05] MEDS: Buprenorphine HCl 2 MG TAB.SUBL SL ×3 (00:49→17:41)
[2023-03-05 01:01] VITALS: BP 95/57; PULSE 60; RESP 16; TEMP 36.4; O2SAT 97
[2023-03-05 05:21] VITALS: BP 104/54; PULSE 53; RESP 16; TEMP 36.4; O2SAT 95
[2023-03-05] MEDS: Methocarbamol 750 MG Tablet 1500 MG PO ×3 (05:31→23:09)
[2023-03-05] MEDS: Dicyclomine 10 MG Capsule 20 MG PO (05:31)
[2023-03-05] MEDS: Gabapentin 300 MG Capsule PO ×2 (05:31→17:38)
--- NOTE | 2023-03-05 08:03 | PCM.PN.HOSP ---
Reason for Visit Reason for Visit: Diagnoses Opioid abuse with withdrawal (03/02/23) Subjective Subjective Still feels terrible, but better overall. Objective Data Objective Data Vital Signs: Vital Signs Temp Pulse Resp BP Pulse Ox O2 Del Method 36.4 C L 53 L 16 104/54 L 95 Room Air 03/05/23 05:21 03/05/23 05:21 03/05/23 05:21 03/05/23 05:21 03/05/23 05:21 03/05/23 05:21 Oxygen Delivery Method Room Air Weight: 107.5 kg Body Mass Index (BMI) 30.4 Intake & Output: Intake and Output for Last 24 Hours 03/03/23 03/04/23 03/05/23 23:59 23:59 23:59 Intake Total 900 / 1100 540 / 740 300 / 300 Balance 900 / 1100 540 / 740 300 / 300 Lab / Micro Data 03/02/23 16:44 03/02/23 16:44 Physical Exam Const alert and no apparent distress Constitutional Narrative: lying in bed. listless. afebrile. HEENT head/scalp atraumatic Assessment & Plan Assessment/Plan (1) Opioid abuse with withdrawal: PLAN: Acute opioid withdrawal Urine tox positive for opiates, amphetamines, MDMA and cocaine. Buprenorphine. (2) Alcohol abuse: PLAN: Noted drinking 2 tall boys daily on phenobarbital taper (3) Benzodiazepine abuse: PLAN: noted occasional clonazepam use. On phenobarbital use. PLAN: Plan Chronic conditions: History of asthma: Not in acute exacerbation. Breathing treatments with bronchodilators DVT prophylaxis: Low risk. Encouraged to ambulate Charges/Coding Visit Charges Inpatient E&M: 06836 [facility] Hosp L1
[2023-03-05] MEDS: hydrOXYzine PAM 25 MG Capsule 50 MG PO ×3 (09:49→23:09)
[2023-03-05] MEDS: Thiamine Hydrochloride 100 MG Tablet PO (09:49)
[2023-03-05] MEDS: Folic Acid 1 MG Tablet PO (09:51)
[2023-03-05 10:00] VITALS: BP 120/73; PULSE 67; RESP 19; TEMP 36.7; O2SAT 99
[2023-03-05] MEDS: cloNIDine HCl 0.1 MG Tablet PO (10:04)
--- NOTE | 2023-03-05 14:03 | ADDICTION ---
This jingle writer met with PT to conduct ASAM, MSE, AUDIT, DUDIT assessments and to plan for d/c. PT A+Ox4 and participated actively. All assessments completed and placed in PT's chart. PT plans to f/u with [facility] for follow-up outpatient treatment services. Pt did not identify a need for transport upon d/c.
[2023-03-05 17:35] VITALS: BP 131/87; PULSE 78; RESP 16; TEMP 37.4; O2SAT 100
[2023-03-05] MEDS: traZODone 100 MG Tablet PO (23:09)
[2023-03-05 23:10] VITALS: BP 116/73; PULSE 64; RESP 16; TEMP 36.3; O2SAT 100
[2023-03-06] MEDS: Buprenorphine HCl 2 MG TAB.SUBL SL ×3 (02:06→22:15)
[2023-03-06 05:00] VITALS: BP 110/69; PULSE 56; RESP 16; TEMP 36.4; O2SAT 98
[2023-03-06] MEDS: Phenobarbital 32.4 MG Tablet PO ×4 (05:20→22:15)
[2023-03-06] MEDS: Methocarbamol 750 MG Tablet 1500 MG PO (05:31)
[2023-03-06] MEDS: Gabapentin 300 MG Capsule PO (05:31)
--- NOTE | 2023-03-06 07:24 | PN.HOSP_ITS ---
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 Objective Data Objective Data Vital Signs: Vital Signs Temp Pulse Resp BP Pulse Ox O2 Del Method 36.4 C L 56 L 16 110/69 98 Room Air 03/06/23 05:00 03/06/23 05:00 03/06/23 05:00 03/06/23 05:00 03/06/23 05:00 03/06/23 05:00 Oxygen Delivery Method Room Air Weight: 107.5 kg Body Mass Index (BMI) 30.4 Intake & Output: Intake and Output for Last 24 Hours 03/04/23 03/05/23 03/06/23 23:59 23:59 23:59 Intake Total 540 / 740 1160 / 1160 100 / 100 Balance 540 / 740 1160 / 1160 100 / 100 Lab / Micro Data 03/02/23 16:44 03/02/23 16:44 Physical Exam Const alert and no apparent distress Neuro Sensorium / Orientation: awake and alert Assessment & Plan Assessment/Plan (1) Opioid abuse with withdrawal: PLAN: Acute opioid withdrawal Urine tox positive for opiates, amphetamines, MDMA and cocaine. Buprenorphine. (2) Alcohol abuse: PLAN: Noted drinking 2 tall boys daily on phenobarbital taper (3) Benzodiazepine abuse: PLAN: noted occasional clonazepam use. On phenobarbital use. PLAN: Plan Chronic conditions: * History of asthma: Not in acute exacerbation. Breathing treatments with bronchodilators DVT prophylaxis: Low risk. Encouraged to ambulate Charges/Coding Visit Charges Inpatient E&M: 41566 Subs Hosp L1
[2023-03-06 08:59] VITALS: BP 127/64; RESP 17; TEMP 36.7; O2SAT 95
[2023-03-06] MEDS: Folic Acid 1 MG Tablet PO (09:28)
[2023-03-06] MEDS: Thiamine Hydrochloride 100 MG Tablet PO (09:28)
[2023-03-06 17:00] VITALS: BP 125/78; PULSE 67; RESP 15; TEMP 36.6; O2SAT 99
[2023-03-06 21:41] VITALS: BP 126/84; PULSE 71; RESP 14; TEMP 36.6; O2SAT 98
[2023-03-06 21:55] VITALS: BP 126/84; PULSE 71; RESP 14; TEMP 36.6; O2SAT 98
[2023-03-07 06:03] VITALS: BP 119/78; PULSE 61; RESP 16; TEMP 36.4; O2SAT 97
[2023-03-07 06:37] VITALS: BP 119/78; PULSE 61; RESP 16; TEMP 36.4; O2SAT 97
--- NOTE | 2023-03-07 08:11 | PN.HOSP_ITS ---
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 Ready for discharge. Objective Data Objective Data Vital Signs: Vital Signs Temp Pulse Resp BP Pulse Ox O2 Del Method 36.4 C L 61 16 119/78 97 Room Air 03/07/23 06:37 03/07/23 06:37 03/07/23 06:37 03/07/23 06:37 03/07/23 06:37 03/07/23 06:37 Oxygen Delivery Method Room Air Weight: 107.5 kg Body Mass Index (BMI) 30.4 Intake & Output: Intake and Output for Last 24 Hours 03/05/23 03/06/23 03/07/23 23:59 23:59 23:59 Intake Total 1160 / 1160 1200 / 2200 1500 / 1500 Balance 1160 / 1160 1200 / 2200 1500 / 1500 Lab / Micro Data 03/02/23 16:44 03/02/23 16:44 Physical Exam Const alert and no apparent distress HEENT head/scalp atraumatic Assessment & Plan Assessment/Plan (1) Opioid abuse with withdrawal: PLAN: Acute opioid withdrawal Urine tox positive for opiates, amphetamines, MDMA and cocaine. Buprenorphine. Pt to follow up with Kristin (2) Alcohol abuse: PLAN: Noted drinking 2 tall boys daily on phenobarbital taper (3) Benzodiazepine abuse: PLAN: noted occasional clonazepam use. On phenobarbital use. PLAN: Plan Chronic conditions: * History of asthma: Not in acute exacerbation. Breathing treatments with bronchodilators DVT prophylaxis: Low risk. Encouraged to ambulate
--- NOTE | 2023-03-07 10:57 | DS.PCM_ITS ---
Providers Date of Admission: 03/02/23 Primary Care Physician: Dr. Luly Montiel MD Reason For Visit: ACUTE OPIOID AND BENZODIAZEPINE WITHDRAWAL Diagnosis Discharge Diagnosis (1) Opioid abuse with withdrawal: Status: Acute Code(s): F11.13 - Opioid abuse with withdrawal Plan: Acute opioid withdrawal Urine tox positive for opiates, amphetamines, MDMA and cocaine. Buprenorphine. Pt to follow up with Kristin (2) Alcohol abuse: Status: Acute Code(s): F10.10 - Alcohol abuse, uncomplicated Plan: Noted drinking 2 tall boys daily on phenobarbital taper (3) Benzodiazepine abuse: Status: Acute Code(s): F13.10 - Sedative, hypnotic or anxiolytic abuse, uncomplicated Plan: noted occasional clonazepam use. On phenobarbital use. Plan Chronic conditions: * History of asthma: Not in acute exacerbation. Breathing treatments with bronchodilators DVT prophylaxis: Low risk. Encouraged to ambulate Medications at Discharge Home Medications albuterol sulfate 90 mcg/actuation aerosol inhaler (Ventolin HFA) 2 puff inhalation Q4H PRN asthma 03/02/23 bupropion HCl 300 mg 24 hr tablet, extended release 300 mg PO DAILY anxiety/depression 03/02/23 gabapentin 600 mg tablet 600 mg PO TID pain 03/02/23 loratadine 10 mg tablet 10 mg no longer takes 03/02/23 multivitamin with folic acid 400 mcg tablet (Daily-[place] (with folic acid)) 1 tab PO DAILY supplement 03/02/23 trazodone 50 mg tablet 50 mg PO DAILY PRN sleep 03/02/23 Hospital Course Operations None Summary of Care Provided Minutes Spent on Discharge: 28 Weight / BMI Weight Weight: 107.5 kg Body Mass Index (BMI) 30.4 ABG / Lab / Microbiology Data 03/02/23 16:44 03/02/23 16:44 D/C Instructions Discharge Diet: No restrictions Meaningful Use Info Meaningful Use Diagnoses (Choose all that apply): None applicable Discharge Plan Admission Admit Date/Time: 03/02/23 18:35 Primary Reason for Your Visit: opiate withdrawal Attending Provider: Young Chavez Primary Care Provider: Luly Montiel Consulting Providers: Jordyn Huitron Discharge Orders/Prescriptions Prescriptions: Continued bupropion HCl 300 mg tablet extended release 24 hr 300 mg PO DAILY gabapentin 600 mg tablet 600 mg PO TID multivitamin with folic acid [Daily-[place] (with folic acid)] 400 mcg tablet 1 tab PO DAILY trazodone 50 mg tablet 50 mg PO DAILY PRN (Reason: sleep) loratadine 10 mg tablet 10 mg albuterol sulfate [Ventolin HFA] 90 mcg/actuation HFA aerosol inhaler 2 puff INHALATION Q4H PRN (Reason: asthma) Discontinued amlodipine 10 mg tablet 10 mg PO DAILY Patient Comments: I'm supposed to take it, but I haven't been taking it. Sublocade 300 mg/1.5 mL solution, extended rel syringe SUBCUT Patient Comments: Does not take anymore Referrals / Follow Up: Luly Montiel MD [Primary Care Provider] - Disposition Disposition (needs filled in before D/C Order can be placed): Home, Self Care Charges/Coding Visit Charges Inpatient E&M: 07123 Disch Hosp
--- NOTE | 2023-03-07 11:26 | PHA.DC.MR.R ---
Pharmacy [place] Med Reconciliation Pharmacy Service has performed discharge medication reconciliation for this patient. The patient's discharge medication list was reviewed for discrepancies and discrepancies were resolved. Medications at Discharge Home Medications albuterol sulfate 90 mcg/actuation aerosol inhaler (Ventolin HFA) 2 puff inhalation Q4H PRN asthma 03/02/23 bupropion HCl 300 mg 24 hr tablet, extended release 300 mg PO DAILY anxiety/depression 03/02/23 gabapentin 600 mg tablet 600 mg PO TID pain 03/02/23 loratadine 10 mg tablet 10 mg no longer takes 03/02/23 multivitamin with folic acid 400 mcg tablet (Daily-[place] (with folic acid)) 1 tab PO DAILY supplement 03/02/23 trazodone 50 mg tablet 50 mg PO DAILY PRN sleep 03/02/23
== END 2023-03-07 13:14 | disposition home or self-care (01) | DRG 773 ==
LOC: ED 17:04 → MS3 18:40
PROVIDERS: Physician Assistant; Admitting Provider Student in an Organized Health Care Education/Training Program; Emergency Provider Emergency Medicine; PCP Internal Medicine
DX: F11.23 Opioid dependence with withdrawal (principal); F10.239 Alcohol dependence with withdrawal, unspecified; F13.239 Sedative, hypnotic or anxiolytic dependence with withdrawal, unspecified; F14.90 Cocaine use, unspecified, uncomplicated; I10 Essential (primary) hypertension; F17.210 Nicotine dependence, cigarettes, uncomplicated; F15.90 Other stimulant use, unspecified, uncomplicated; J45.909 Unspecified asthma, uncomplicated; Z59.00 Homelessness unspecified; Y90.0 Blood alcohol level of less than 20 mg/100 ml
CPT/HCPCS: 36415; 80048; 80076; 80307; 82077; 85025; 97802; 99284; 99406; J2405